=== PATIENT | female | born 1945 | race Caucasian/White ===

== ENCOUNTER → 2017-10-05 14:24 | Outpatient (REF) | payer OTHER, SELFPAY | LOC: LAB 14:24 | PROVIDERS: Family Provider Family Medicine; PCP Family Medicine; Visit Provider Otolaryngology | DX: J34.0 Abscess, furuncle and carbuncle of nose (principal) | CPT/HCPCS: 87070; 87077; 87147; 87186; 87205 ==

== ENCOUNTER 2018-02-03 12:38 | Emergency (ER) | payer MEDICARE, OTHER, SELFPAY ==
--- NOTE | 2018-02-03 12:38 | DI.CT.S_ITS ---
PROCEDURE: CT HEAD/BRAIN WO CON INDICATIONS: stroke TECHNIQUE: Noncontrast 4.5 mm thick angled axial sections acquired from the foramen magnum to the vertex, with coronal and sagittal reformats. For radiation dose reduction, the following was used: automated exposure control, adjustment of mA and/or kV according to patient size. COMPARISON: None. FINDINGS: Image quality: Excellent. CSF spaces: Basal cisterns are patent. No extra-axial fluid collections. The ventricles are symmetric in size and shape. Brain: No intracranial bleeds or masses. There is cerebral volume loss for age, with resultant ventricular and sulcal prominence. There are periventricular and deep white matter chronic small vessel ischemic changes. There is intracranial internal carotid artery atherosclerosis. Skull and face: Calvarium and visualized facial bones appear intact, without suspicious lesions. Sinuses: Visualized sinuses and mastoids are clear. IMPRESSION: No acute intracranial abnormality. Dictated by: Debra Bethea M.D. on 02/03/2018 at 12:52 Approved by: Debra Bethea M.D. on 02/03/2018 at 12:53
--- NOTE | 2018-02-03 12:52 | ED.NEUROSD ---
HPI - Neuro Symptoms/Deficit General Chief Complaint: Neuro Symptoms/Deficit Stated Complaint: Rt Facial Droop Time Seen by Provider: 02/03/18 12:51 Source: patient and EMS Mode of arrival: EMS Limitations: altered mental status History of Present Illness HPI Narrative: 72-year-old female with history of hypertension presents as a code stroke by EMS. She was talking on the phone with a friend, the conversation started at 11:05 a.m. and at 11:25 a.m. the friend states the patient became unintelligible. Prior to that point there was no complaint of feeling abnormal no recent illness. EMS found the patient at home on the ground with obvious significant right-sided weakness and unintelligible speech. She was found with blood glucose of 98 and no complaint of a fall or injury. Code stroke activated. Last Observed Normal: 11:25 Timing confirmed by: family member Location: speech, right face, dysarthria, right arm, right leg, ataxia and altered History of same: No Severity: severe Quality: weak Relieving factors: none Exacerbating factors: none Context: sudden onset On Anticoagulants: No Associated symptoms: denies other symptoms Treatments Prior to Arrival: none Related Data Previous Rx's Medication Instructions Recorded codeine-guaifenesin 5 ml PO Q4HP PRN #100 ml 01/30/17 doxycycline monohydrate [Monodox] 100 mg PO BID #20 cap 01/30/17 prednisone 20 mg PO QDAY #5 tab 01/30/17 Allergies Allergy/AdvReac Type Severity Reaction Status Date / Time amoxicillin [From AUGMENTIN] Allergy Severe HEART Unverified 08/01/17 11:50 PALPATIONS clavulanic acid Allergy Severe HEART Unverified 08/01/17 11:50 [From AUGMENTIN] PALPATIONS lisinopril [LISINOPRIL] AdvReac Severe COUGH Unverified 08/01/17 11:50 Review of Systems Review of Systems All systems reviewed & are unremarkable except as noted in HPI and below Constitutional Denies chills, Denies fever(s), Denies lethargy and Reports weakness Eyes Denies change in vision, Denies eye discharge, Denies irritation and Denies loss of vision ENT Ears, Nose, Mouth, and Throat: Denies change in voice, Denies neck pain and Denies sore throat Cardiovascular Denies chest pain, Denies irregular heart rhythm, Denies lightheadedness, Denies palpitations, Denies dyspnea, Denies dyspnea on exertion and Denies orthopnea Respiratory Denies cough, Denies dyspnea, Denies dyspnea on exertion and Denies wheezing Gastrointestinal Gastrointestinal: Denies abdominal pain, Denies change in bowel habits, Denies diarrhea, Denies nausea and Denies vomiting Genitourinary Denies hematuria, Denies flank pain, Denies urinary incontinence and Denies urinary urgency Musculoskeletal Denies neck pain Integumentary/Breasts Denies pruritus, Denies erythema, Denies rash and Denies wounds Neurologic Reports system reviewed and no additional complaints, except as docu, Reports abnormal speech, Denies confusion, Reports focal weakness, Denies loss of vision, Reports paresthesias and Reports weakness Psychiatric Denies anxiety, Denies confusion, Denies depression, Denies homicidal ideation and Denies suicidal ideation Endocrine Denies palpitations Hematologic/Lymphatic Denies easy bruising Allergic/Immunologic Denies wheezing Exam Narrative Exam Narrative: GENERAL: This is a well-nourished, well-developed patient, in severe distress with obvious large vessel occlusion HEAD: Atraumatic. Normocephalic. No temporal or scalp tenderness. EYES: Pupils equal round and reactive. Extraocular motions intact. No scleral icterus. No injection or drainage. ENT: Nose without bleeding, purulent drainage or septal hematoma. Throat without erythema, tonsillar hypertrophy or exudate. Uvula midline. Airway patent. NECK: Trachea midline. No JVD or lymphadenopathy. Supple, nontender, no meningeal signs. CARDIOVASCULAR: Regular rate and rhythm without murmurs, gallops, or rubs. RESPIRATORY: Clear to auscultation. Breath sounds equal bilaterally. No wheezes, rales, or rhonchi. GASTROINTESTINAL: Abdomen soft, non-tender, nondistended. No hepato-splenomegaly, or palpable masses. No guarding. EXTREMITIES: No clubbing, cyanosis, or edema. No joint tenderness, effusion, or edema noted. BACK: Nontender without deformity or crepitance. No flank tenderness. NEURO: See NIH SKIN: No rash or erythema. Initial Vital Signs Initial Vital Signs: Vital Signs Temperature 97.0 F L 02/03/18 12:53 Pulse Rate 84 02/03/18 12:53 Respiratory Rate 19 02/03/18 12:53 Blood Pressure 186/86 H 02/03/18 12:53 Pulse Oximetry 98 10/14/18 12:53 Scores NIH Stroke Scale Level of Conciousness: Alert, keenly responsive Ask month/age: Answers both questions correctly. Open/close eyes, close hand: Performs both tasks correctly Best gaze horizontal: Normal Visual crespo: No visual loss Facial palsy: Partial paralysis, total or near total paralysis of lower face Left arm drift: No drift for full 10 sec Right arm drift: No movement Left leg drift: No drift for full 10 sec Right leg drift: No movement Limb ataxia: Absent Sensory on face/arms/legs: Normal, no sensory loss Best language: Severe aphasia, not much is understood, fragmented Dysarthria: Mild to mod,some slurring Extinction or inattention: Visual, tactile, auditory, spacial or personal inattention to stimuli Total NIH Stroke scale score: 14 Course Orders Ordered: ED Orders 02/03/18 12:38 CT head/brain wo con Stat 02/03/18 12:39 EKG-12 Lead Stat 02/03/18 13:06 CT angio head and neck Stat Discontinued Medications Sodium Chloride (Normal Saline 0.9%) 1,000 mls @ 150 mls/hr IV CONT LYNDA Last Admin: 02/03/18 14:35 Dose: Nicardipine HCl 25 mg/ Sodium (Chloride) 250 mls @ 50 mls/hr IV TITRATE LYNDA; Protocol Last Admin: 02/03/18 14:34 Dose: Reevaluation(s) Reevaluation #1: Patient back from CTA and demonstrating some improvement of symptoms including some mild return of motor to right upper and lower extremity. She can move fingers and toes DPOA is sister Jessi Cooper, she is aware and en route to [facility]. [phone] Time: 13:42 Consultations Consultation #1: stroke team called, CODE IR activated tPA bolus ordered 8.4mg (1316) tPA drip ordered 75.8mg (1317) pharmacy at bedside patient consented to tPA. Systolic BP just prior to tPA 177 tPA Contraindications for Ischemic Stroke from [email or web address] on 02/03/2018 All calculations should be rechecked by clinician prior to use RESULT SUMMARY: Patient eligible for tPA. INPUTS: Age ?17 ?> 1 = Yes Clinical diagnosis of ischemic stroke causing neurological deficit ?> 1 = Yes Time of symptom onset <4.5 hours ?> 1 = Yes Intracranial hemorrhage on CT ?> 0 = No Clinical presentation suggests subarachnoid hemorrhage ?> 0 = No Neurosurgery, head trauma, or stroke in past 3 months ?> 0 = No Uncontrolled hypertension (>185 mmHg SBP or >110 mmHg DBP) ?> 0 = No History of intracranial hemorrhage ?> 0 = No Known intracranial arteriovenous malformation, neoplasm, or aneurysm ?> 0 = No Active internal bleeding ?> 0 = No Suspected/confirmed endocarditis ?> 0 = No Known bleeding diathesis ?> 0 = No Abnormal blood glucose (<50 mg/dL) ?> 0 = No Only minor or rapidly improving stroke symptoms ?> 0 = No Major surgery or serious non-head trauma in the previous 14 days ?> 0 = No History of gastrointestinal or urinary tract hemorrhage within 21 days ?> 0 = No Seizure at stroke onset ?> 0 = No Recent arterial puncture at a noncompressible site ?> 0 = No Recent lumbar puncture ?> 0 = No Post myocardial infarction pericarditis ?> 0 = No ?> 0 = No Age >80 years ?> 0 = No History of prior stroke and diabetes ?> 0 = No Any active anticoagulant use (even with INR <1.7) ?> 0 = No <calculator id='[id number]'>NIHSS</calculator> >25 ?> 0 = No CT shows multilobar infarction (hypodensity >1/3 cerebral hemisphere) ?> 0 = No tPA (Tissue Plasminogen Activator) Dosing for Stroke Calculator from [employer] on 02/03/2018 All calculations should be rechecked by clinician prior to use RESULT SUMMARY: 8.4 mg Bolus dose, given IV over 1 min 75.8 mg Infusion, given IV over 60 mins 15.8 mg Waste, to be discarded INPUTS: Weight ?> 93.6 kg happy to accept as code IR. will obtain CTA prior to departure Time: 13:04 Consultation #2: [email or web address] en route Time: 13:10 Vital Signs - 8 hr 02/03/18 12:53 02/03/18 13:54 02/03/18 14:37 Temperature 97.0 F L Pulse Rate 84 87 89 Respiratory Rate 19 20 20 Blood Pressure 186/86 H 162/71 H Blood Pressure [Right Arm] 165/77 H Pulse Oximetry 98 95 98 MDM - Neuro Symptoms/Deficit Medical Records Attestation: I reviewed the patient's medical records. Lab Data Attestation: I reviewed the patient's lab results. Result diagrams: 02/03/18 Unknown 02/03/18 Unknown Lab Results 02/03/18 02/03/18 02/03/18 Range/Units Unknown Unknown Unknown WBC 6.0 (4.5-11.0) X10^3/uL RBC 4.64 (4.0-5.2) X10^6/uL Hgb 13.4 (12.0-16.0) g/dL Hct 40.2 (36-46) % MCV 86.5 (80-100) fL MCH 28.9 (26-34) PG MCHC 33.5 (30-36) % RDW 14.9 H (11.6-14.8) % Plt Count 227 (150-400) X10^3/uL Neut % (Auto) 64.4 (50-75) % Lymph % (Auto) 26.1 (25-40) % [place] % (Auto) 7.2 (3-14) % Eos % (Auto) 1.4 L (2-4) % Baso % (Auto) 0.9 (0-2) % Neut # (Auto) 3900 (3589-1846) /uL PT 10.7 (10.1-12.7) SECONDS INR 1.0 (0.9-1.3) APTT 28 (26.4-36.2) SECONDS Sodium 142 (137-145) mmol/L Potassium 3.9 (3.4-5.1) mmol/L Chloride 103 (98-107) mmol/L Carbon Dioxide 26 (22-32) mmol/L BUN 21 H (7-17) mg/dL Creatinine 0.80 (0.52-1.04) mg/dL Estimated GFR > 60.0 (>60) mL/min BUN/Creatinine Ratio 26.3 H (6-22) Glucose 104 (80-110) mg/dL Calcium 9.6 (8.4-10.2) mg/dL Imaging Data CT scan - head: Radiologist's impression: [address] [address] [address] Scan Report Signed Patient: Marielos Walker EMR#: [id number] : 5Acct:[id number] Age/Sex: 72 / FDate of Service: 02/03/18 Loc: ED Accession Number: [id number] Procedure: CT head/brain wo con Ordering Provider: Wes Cagle D.O. PROCEDURE: CT HEAD/BRAIN WO CON INDICATIONS: stroke TECHNIQUE: Noncontrast 4.5 mm thick angled axial sections acquired from the foramen magnum to the vertex, with coronal and sagittal reformats. For radiation dose reduction, the following was used: automated exposure control, adjustment of mA and/or kV according to patient size. COMPARISON: None. FINDINGS: Image quality: Excellent. CSF spaces: Basal cisterns are patent. No extra-axial fluid collections. The ventricles are symmetric in size and shape. Brain: No intracranial bleeds or masses. There is cerebral volume loss for age, with resultant ventricular and sulcal prominence. There are periventricular and deep white matter chronic small vessel ischemic changes. There is intracranial internal carotid artery atherosclerosis. Skull and face: Calvarium and visualized facial bones appear intact, without suspicious lesions. Sinuses: Visualized sinuses and mastoids are clear. IMPRESSION: No acute intracranial abnormality. Dictated by: Debra Bethea M.D. on 02/03/2018 at 12:52 Approved by: Debra Bethea M.D. on 02/03/2018 at 12:53 CTA Head/Neck: Radiologist's impression: [place] [address] CT Scan Report Signed Patient: Marielos Walker EMR#: [id number] : 5Acct:[id number] Age/Sex: 72 / FDate of Service: 02/03/18 Loc: ED Accession Number: [id number] Procedure: CT angio head and neck Ordering Provider: Wes Cagle D.O. PROCEDURE: CT ANGIO HEAD AND NECK INDICATIONS: code IR TECHNIQUE: Pre-contrast 4.5 mm thick sections acquired from the foramen magnum to the vertex. After the administration of intravenous contrast, 1 mm thick sections acquired from the aortic arch through the [place] of [place]. Post-contrast 4.5 mm thick sections then re-acquired from the foramen magnum to the vertex. 3-dimensional khnwspf-smmstafvr-tcqgxknlar (MIP) and/or volume rendering reformats were acquired of the central intracranial vasculature and neck separately. COMPARISON: [facility], CT, CT HEAD/BRAIN WO CON, 02/03/2018, 12:34. FINDINGS: Image quality: Excellent. BRAIN: CSF spaces: Ventricles are normal in size and shape. Basal cisterns are patent. No extra-axial fluid collections. Brain: No midline shift. No intracranial bleeds. There is a dural-based calcified mass at the lateral aspect of the left temporal lobe anteriorly measuring 18 mm. Etienne-white matter interface appears intact. Skull and face: Calvarium and facial bones appear intact, without suspicious lesions. Orbits appear normal. Sinuses: Sinuses and mastoids are clear. HEAD CT ANGIOGRAPHY: Anterior circulation: Right internal carotid artery is patent as visualized. The cavernous segment is not well seen secondary to vessel tortuosity and venous opacification. Left internal carotid artery is occluded. Reconstituted flow is seen within the left middle cerebral artery. There is moderately reduced flow within the left middle cervical artery. The flow within the paired anterior cerebral arteries is normal and symmetric. The flow within the middle cerebral arteries is normal and symmetric. The anterior communicating artery is seen. No aneurysms are seen. Posterior circulation: Visualized portions of the vertebral arteries demonstrate normal caliber, and join to form a normal appearing basilar artery. Flow within the posterior cerebral arteries is normal and symmetric. No aneurysms are seen. NECK CT ANGIOGRAPHY: Carotid system: The great vessels demonstrate a conventional anatomy as they arise from the aortic arch. The origins of the common carotid arteries appear patent. The common carotid arteries demonstrate normal caliber and courses. There is moderate, roughly 50% stenosis of the proximal right internal carotid artery, which overlies appears patent. Left internal carotid artery is occluded. Posterior circulation: The origins of the vertebral arteries both appear widely patent. The more superior extracranial portions of both vertebral arteries also demonstrate normal courses and calibers. They join to form a normal appearing basilar artery. Soft tissues: Visualized neck soft tissues demonstrate no suspicious abnormalities. Bones: No suspicious bony lesions. Visualized cervical spine appears normally aligned. IMPRESSION: 1. Completely occluded left internal carotid artery. 2. 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 3. Left middle cranial fossa meningioma. Any quantitative measurements of stenosis were performed using NASCET criteria. Dictated by: Debra Bethea M.D. on 02/03/2018 at 14:01 Approved by: Debra Bethea M.D. on 02/03/2018 at 14:09 ECG Data Attestation: I personally reviewed and interpreted this ECG as follows: Prior ECG tracings: not available for review Interpretation: Normal sinus rhythm with rate of 81. No ectopy or signs of ischemia Discharge Plan Departure [facility] Clinical Impression: Cerebrovascular accident Discharge Date/Time: 02/03/18 14:02 Interventions: ED Discharge Assessment Last Done: 02/03/18 14:37 Prescriptions: No Action prednisone 20 MG tablet 20 mg PO QDAY Qty: 5 RF: 0 doxycycline monohydrate [Monodox] 100 MG capsule 100 mg PO BID Qty: 20 RF: 0 codeine-guaifenesin 100 MG/10 MG liquid 5 ml PO Q4HP PRNQty: 100 RF: 0
[2018-02-03 12:53] VITALS: BP 186/86; PULSE 84; RESP 19; TEMP 36.1; O2SAT 98
[2018-02-03 12:54] LABS: Add Manual Diff / Slide Review NO; Basophils Percent Auto 0.9 % (0-2); Eosinophils Percent Auto 1.4 % (2-4); Hematocrit 40.2 % (36-46); Hemoglobin 13.4 g/dL (12.0-16.0); Lymphocytes Percent Auto 26.1 % (25-40); Mean Corpuscular HGB Conc 33.5 % (30-36); Mean Corpuscular Hemoglobin 28.9 PG (26-34); Mean Corpuscular Volume 86.5 fL (80-100); Monocytes Percent Auto 7.2 % (3-14); Neutrophils Absolute Auto 3900 /uL (3000-5900); Neutrophils Percent Auto 64.4 % (50-75); Platelet Count 227 X10^3/uL (150-400); Red Blood Cell Count 4.64 X10^6/uL (4.0-5.2); Red Cell Distribution Width 14.9 % (11.6-14.8)
[2018-02-03 13:02] LABS: Prothrombin Time 10.7 SECONDS (10.1-12.7)
[2018-02-03 13:04] LABS: PTT Partial Thromboplastin Tim 28 SECONDS (26.4-36.2)
[2018-02-03 13:05] LABS: BUN Creatinine Ratio 26.3 (6-22); Blood Urea Nitrogen 21 mg/dL (7-17); Calcium 9.6 mg/dL (8.4-10.2); Carbon Dioxide 26 mmol/L (22-32); Chloride 103 mmol/L (98-107); Estimated Glomerular Filt Rate > 60.0 mL/min (>60); Glucose 104 mg/dL (80-110); HEMOLYSIS 22 (0-50); Potassium 3.9 mmol/L (3.4-5.1); Sodium 142 mmol/L (137-145)
--- NOTE | 2018-02-03 13:06 | ED_ITS ---
HPI - Neuro Symptoms/Deficit General Chief Complaint: Neuro Symptoms/Deficit Stated Complaint: Rt Facial Droop Time Seen by Provider: 02/03/18 12:51 Source: patient and EMS Mode of arrival: EMS Limitations: altered mental status History of Present Illness HPI Narrative: 72-year-old female with history of hypertension presents as a code stroke by EMS. She was talking on the phone with a friend, the conversation started at 11:05 a.m. and at 11:25 a.m. the friend states the patient became unintelligible. Prior to that point there was no complaint of feeling abnormal no recent illness. EMS found the patient at home on the ground with obvious significant right-sided weakness and unintelligible speech. She was found with blood glucose of 98 and no complaint of a fall or injury. Code stroke activated. Last Observed Normal: 11:25 Timing confirmed by: family member Location: speech, right face, dysarthria, right arm, right leg, ataxia and altered History of same: No Severity: severe Quality: weak Relieving factors: none Exacerbating factors: none Context: sudden onset On Anticoagulants: No Associated symptoms: denies other symptoms Treatments Prior to Arrival: none Related Data Previous Rx's Medication Instructions Recorded codeine-guaifenesin 5 ml PO Q4HP PRN #100 ml 01/30/17 doxycycline monohydrate [Monodox] 100 mg PO BID #20 cap 01/30/17 prednisone 20 mg PO QDAY #5 tab 01/30/17 Allergies Allergy/AdvReac Type Severity Reaction Status Date / Time amoxicillin [From AUGMENTIN] Allergy Severe HEART Unverified 08/01/17 11:50 PALPATIONS clavulanic acid Allergy Severe HEART Unverified 08/01/17 11:50 [From AUGMENTIN] PALPATIONS lisinopril [LISINOPRIL] AdvReac Severe COUGH Unverified 08/01/17 11:50 Review of Systems Review of Systems All systems reviewed & are unremarkable except as noted in HPI and below Constitutional Denies chills, Denies fever(s), Denies lethargy and Reports weakness Eyes Denies change in vision, Denies eye discharge, Denies irritation and Denies loss of vision ENT Ears, Nose, Mouth, and Throat: Denies change in voice, Denies neck pain and Denies sore throat Cardiovascular Denies chest pain, Denies irregular heart rhythm, Denies lightheadedness, Denies palpitations, Denies dyspnea, Denies dyspnea on exertion and Denies orthopnea Respiratory Denies cough, Denies dyspnea, Denies dyspnea on exertion and Denies wheezing Gastrointestinal Gastrointestinal: Denies abdominal pain, Denies change in bowel habits, Denies diarrhea, Denies nausea and Denies vomiting Genitourinary Denies hematuria, Denies flank pain, Denies urinary incontinence and Denies urinary urgency Musculoskeletal Denies neck pain Integumentary/Breasts Denies pruritus, Denies erythema, Denies rash and Denies wounds Neurologic Reports system reviewed and no additional complaints, except as docu, Reports abnormal speech, Denies confusion, Reports focal weakness, Denies loss of vision , Reports paresthesias and Reports weakness Psychiatric Denies anxiety, Denies confusion, Denies depression, Denies homicidal ideation and Denies suicidal ideation Endocrine Denies palpitations Hematologic/Lymphatic Denies easy bruising Allergic/Immunologic Denies wheezing Exam Narrative Exam Narrative: GENERAL: This is a well-nourished, well-developed patient, in severe distress with obvious large vessel occlusion HEAD: Atraumatic. Normocephalic. No temporal or scalp tenderness. EYES: Pupils equal round and reactive. Extraocular motions intact. No scleral icterus. No injection or drainage. ENT: Nose without bleeding, purulent drainage or septal hematoma. Throat without erythema, tonsillar hypertrophy or exudate. Uvula midline. Airway patent. NECK: Trachea midline. No JVD or lymphadenopathy. Supple, nontender, no meningeal signs. CARDIOVASCULAR: Regular rate and rhythm without murmurs, gallops, or rubs. RESPIRATORY: Clear to auscultation. Breath sounds equal bilaterally. No wheezes , rales, or rhonchi. GASTROINTESTINAL: Abdomen soft, non-tender, nondistended. No hepato-splenomegaly , or palpable masses. No guarding. EXTREMITIES: No clubbing, cyanosis, or edema. No joint tenderness, effusion, or edema noted. BACK: Nontender without deformity or crepitance. No flank tenderness. NEURO: See NIH SKIN: No rash or erythema. Initial Vital Signs Initial Vital Signs: Vital Signs Temperature 97.0 F L 02/03/18 12:53 Pulse Rate 84 02/03/18 12:53 Respiratory Rate 19 02/03/18 12:53 Blood Pressure 186/86 H 02/03/18 12:53 Pulse Oximetry 98 10/14/18 12:53 Scores NIH Stroke Scale Level of Conciousness: Alert, keenly responsive Ask month/age: Answers both questions correctly. Open/close eyes, close hand: Performs both tasks correctly Best gaze horizontal: Normal Visual crespo: No visual loss Facial palsy: Partial paralysis, total or near total paralysis of lower face Left arm drift: No drift for full 10 sec Right arm drift: No movement Left leg drift: No drift for full 10 sec Right leg drift: No movement Limb ataxia: Absent Sensory on face/arms/legs: Normal, no sensory loss Best language: Severe aphasia, not much is understood, fragmented Dysarthria: Mild to mod,some slurring Extinction or inattention: Visual, tactile, auditory, spacial or personal inattention to stimuli Total NIH Stroke scale score: 14 Course Orders Ordered: ED Orders 02/03/18 12:38 CT head/brain wo con Stat 02/03/18 12:39 EKG-12 Lead Stat 02/03/18 13:06 CT angio head and neck Stat Discontinued Medications Sodium Chloride (Normal Saline 0.9%) 1,000 mls @ 150 mls/hr IV CONT LYNDA Last Admin: 02/03/18 14:35 Dose: Nicardipine HCl 25 mg/ Sodium (Chloride) 250 mls @ 50 mls/hr IV TITRATE LYNDA; Protocol Last Admin: 02/03/18 14:34 Dose: Reevaluation(s) Reevaluation #1: Patient back from CTA and demonstrating some improvement of symptoms including some mild return of motor to right upper and lower extremity. She can move fingers and toes DPOA is sister Jessi Cooper, she is aware and en route to [facility]. [phone] Time: 13:42 Consultations Consultation #1: stroke team called, CODE IR activated tPA bolus ordered 8.4mg (1316) tPA drip ordered 75.8mg (1317) pharmacy at bedside patient consented to tPA. Systolic BP just prior to tPA 177 tPA Contraindications for Ischemic Stroke from [employer] on 02/03/2018 All calculations should be rechecked by clinician prior to use RESULT SUMMARY: Patient eligible for tPA. INPUTS: Age ?17 ?> 1 = Yes Clinical diagnosis of ischemic stroke causing neurological deficit ?> 1 = Yes Time of symptom onset <4.5 hours ?> 1 = Yes Intracranial hemorrhage on CT ?> 0 = No Clinical presentation suggests subarachnoid hemorrhage ?> 0 = No Neurosurgery, head trauma, or stroke in past 3 months ?> 0 = No Uncontrolled hypertension (>185 mmHg SBP or >110 mmHg DBP) ?> 0 = No History of intracranial hemorrhage ?> 0 = No Known intracranial arteriovenous malformation, neoplasm, or aneurysm ?> 0 = No Active internal bleeding ?> 0 = No Suspected/confirmed endocarditis ?> 0 = No Known bleeding diathesis ?> 0 = No Abnormal blood glucose (<50 mg/dL) ?> 0 = No Only minor or rapidly improving stroke symptoms ?> 0 = No Major surgery or serious non-head trauma in the previous 14 days ?> 0 = No History of gastrointestinal or urinary tract hemorrhage within 21 days ?> 0 = No Seizure at stroke onset ?> 0 = No Recent arterial puncture at a noncompressible site ?> 0 = No Recent lumbar puncture ?> 0 = No Post myocardial infarction pericarditis ?> 0 = No ?> 0 = No Age >80 years ?> 0 = No History of prior stroke and diabetes ?> 0 = No Any active anticoagulant use (even with INR <1.7) ?> 0 = No <calculator id='[id number]'>NIHSS</calculator> >25 ?> 0 = No CT shows multilobar infarction (hypodensity >1/3 cerebral hemisphere) ?> 0 = No tPA (Tissue Plasminogen Activator) Dosing for Stroke Calculator from [employer] on 02/03/2018 All calculations should be rechecked by clinician prior to use RESULT SUMMARY: 8.4 mg Bolus dose, given IV over 1 min 75.8 mg Infusion, given IV over 60 mins 15.8 mg Waste, to be discarded INPUTS: Weight ?> 93.6 kg happy to accept as code IR. will obtain CTA prior to departure Time: 13:04 Consultation #2: [email or web address] en route Time: 13:10 Vital Signs - 8 hr 02/03/18 12:53 02/03/18 13:54 02/03/18 14:37 Temperature 97.0 F L Pulse Rate 84 87 89 Respiratory Rate 19 20 20 Blood Pressure 186/86 H 162/71 H Blood Pressure [Right Arm] 165/77 H Pulse Oximetry 98 95 98 MDM - Neuro Symptoms/Deficit Medical Records Attestation: I reviewed the patient's medical records. Lab Data Attestation: I reviewed the patient's lab results. Result diagrams: 02/03/18 Unknown 02/03/18 Unknown Lab Results 02/03/18 02/03/18 02/03/18 Range/Units Unknown Unknown Unknown WBC 6.0 (4.5-11.0) X10^3/uL RBC 4.64 (4.0-5.2) X10^6/uL Hgb 13.4 (12.0-16.0) g/dL Hct 40.2 (36-46) % MCV 86.5 (80-100) fL MCH 28.9 (26-34) PG MCHC 33.5 (30-36) % RDW 14.9 H (11.6-14.8) % Plt Count 227 (150-400) X10^3/uL Neut % (Auto) 64.4 (50-75) % Lymph % (Auto) 26.1 (25-40) % Howard % (Auto) 7.2 (3-14) % Eos % (Auto) 1.4 L (2-4) % Baso % (Auto) 0.9 (0-2) % Neut # (Auto) 3900 (2767-1735) /uL PT 10.7 (10.1-12.7) SECONDS INR 1.0 (0.9-1.3) APTT 28 (26.4-36.2) SECONDS Sodium 142 (137-145) mmol/L Potassium 3.9 (3.4-5.1) mmol/L Chloride 103 (98-107) mmol/L Carbon Dioxide 26 (22-32) mmol/L BUN 21 H (7-17) mg/dL Creatinine 0.80 (0.52-1.04) mg/dL Estimated GFR > 60.0 (>60) mL/min BUN/Creatinine Ratio 26.3 H (6-22) Glucose 104 (80-110) mg/dL Calcium 9.6 (8.4-10.2) mg/dL Imaging Data CT scan - head: Radiologist's impression: [address] [address] [address] Scan Report Signed Patient: Marielos Walker EMR#: [id number] : 5Acct:[id number] Age/Sex: 72 / FDate of Service: 02/03/18 Loc: ED Accession Number: [id number] Procedure: CT head/brain wo con Ordering Provider: Wes Cagle D.O. PROCEDURE: CT HEAD/BRAIN WO CON INDICATIONS: stroke TECHNIQUE: Noncontrast 4.5 mm thick angled axial sections acquired from the foramen magnum to the vertex, with coronal and sagittal reformats. For radiation dose reduction, the following was used: automated exposure control, adjustment of mA and/or kV according to patient size. COMPARISON: None. FINDINGS: Image quality: Excellent. CSF spaces: Basal cisterns are patent. No extra-axial fluid collections. The ventricles are symmetric in size and shape. Brain: No intracranial bleeds or masses. There is cerebral volume loss for age , with resultant ventricular and sulcal prominence. There are periventricular and deep white matter chronic small vessel ischemic changes. There is intracranial internal carotid artery atherosclerosis. Skull and face: Calvarium and visualized facial bones appear intact, without suspicious lesions. Sinuses: Visualized sinuses and mastoids are clear. IMPRESSION: No acute intracranial abnormality. Dictated by: Debra Bethea M.D. on 02/03/2018 at 12:52 Approved by: Debra Bethea M.D. on 02/03/2018 at 12:53 CTA Head/Neck: Radiologist's impression: [place] [address] CT Scan Report Signed Patient: Marielos Walker EMR#: [id number] : 5Acct:[id number] Age/Sex: 72 / FDate of Service: 02/03/18 Loc: ED Accession Number: [id number] Procedure: CT angio head and neck Ordering Provider: Wes Cagle D.O. PROCEDURE: CT ANGIO HEAD AND NECK INDICATIONS: code IR TECHNIQUE: Pre-contrast 4.5 mm thick sections acquired from the foramen magnum to the vertex. After the administration of intravenous contrast, 1 mm thick sections acquired from the aortic arch through the [place] of [place]. Post-contrast 4.5 mm thick sections then re- acquired from the foramen magnum to the vertex. 3-dimensional maximum-intensity- projection (MIP) and/or volume rendering reformats were acquired of the central intracranial vasculature and neck separately. COMPARISON: [facility], CT, CT HEAD/BRAIN WO CON, 02/03/2018, 12:34. FINDINGS: Image quality: Excellent. BRAIN: CSF spaces: Ventricles are normal in size and shape. Basal cisterns are patent. No extra-axial fluid collections. Brain: No midline shift. No intracranial bleeds. There is a dural-based calcified mass at the lateral aspect of the left temporal lobe anteriorly measuring 18 mm. Etienne -white matter interface appears intact. Skull and face: Calvarium and facial bones appear intact, without suspicious lesions. Orbits appear normal. Sinuses: Sinuses and mastoids are clear. HEAD CT ANGIOGRAPHY: Anterior circulation: Right internal carotid artery is patent as visualized. The cavernous segment is not well seen secondary to vessel tortuosity and venous opacification. Left internal carotid artery is occluded. Reconstituted flow is seen within the left middle cerebral artery. There is moderately reduced flow within the left middle cervical artery. The flow within the paired anterior cerebral arteries is normal and symmetric. The flow within the middle cerebral arteries is normal and symmetric. The anterior communicating artery is seen. No aneurysms are seen. Posterior circulation: Visualized portions of the vertebral arteries demonstrate normal caliber, and join to form a normal appearing basilar artery. Flow within the posterior cerebral arteries is normal and symmetric. No aneurysms are seen. NECK CT ANGIOGRAPHY: Carotid system: The great vessels demonstrate a conventional anatomy as they arise from the aortic arch. The origins of the common carotid arteries appear patent. The common carotid arteries demonstrate normal caliber and courses. There is moderate, roughly 50% stenosis of the proximal right internal carotid artery, which overlies appears patent. Left internal carotid artery is occluded. Posterior circulation: The origins of the vertebral arteries both appear widely patent. The more superior extracranial portions of both vertebral arteries also demonstrate normal courses and calibers. They join to form a normal appearing basilar artery. Soft tissues: Visualized neck soft tissues demonstrate no suspicious abnormalities. Bones: No suspicious bony lesions. Visualized cervical spine appears normally aligned. IMPRESSION: 1. Completely occluded left internal carotid artery. 2. 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 3. Left middle cranial fossa meningioma. Any quantitative measurements of stenosis were performed using NASCET criteria. Dictated by: Debra Bethea M.D. on 02/03/2018 at 14:01 Approved by: Debra Bethea M.D. on 02/03/2018 at 14:09 ECG Data Attestation: I personally reviewed and interpreted this ECG as follows: Prior ECG tracings: not available for review Interpretation: Normal sinus rhythm with rate of 81. No ectopy or signs of ischemia Discharge Plan Departure Patient Disposition: [facility] Clinical Impression: Cerebrovascular accident Discharge Date/Time: 02/03/18 14:02 Interventions: ED Discharge Assessment Last Done: 02/03/18 14:37 Prescriptions: No Action prednisone 20 MG tablet 20 mg PO QDAY Qty: 5 RF: 0 doxycycline monohydrate [Monodox] 100 MG capsule 100 mg PO BID Qty: 20 RF: 0 codeine-guaifenesin 100 MG/10 MG liquid 5 ml PO Q4HP PRNQty: 100 RF: 0
[2018-02-03] MEDS: ALTEPLASE 100 MG VIAL 84.2 MG IV (13:16)
[2018-02-03 13:54] VITALS: BP 165/77; PULSE 87; RESP 20; O2SAT 95
[2018-02-03 14:37] VITALS: BP 162/71; PULSE 89; RESP 20; O2SAT 98
== END 2018-02-03 14:02 | disposition short-term general hospital (02) ==
LOC: ED 14:14
PROVIDERS: Emergency Provider Emergency Medicine; Family Provider Family Medicine; PCP Family Medicine
DX: I63.9 Cerebral infarction, unspecified (principal)
CPT/HCPCS: 70450; 70496; 70498; 80048; 85025; 85610; 85730; 93005; 93010; 99283; 99291; 99292; J2997; Q9967

== ENCOUNTER → 2018-07-11 13:23 | Outpatient (CLI) | payer MEDICARE, OTHER, SELFPAY ==
--- NOTE | 2018-07-11 | DI.CT.S_ITS ---
PROCEDURE: CT CHEST W CON INDICATIONS: HISTORY OF MULTIPLE PULMONARY NODULES TECHNIQUE: After the administration of intravenous contrast, 5 mm thick sections acquired from the pulmonary apices to the posterior costophrenic angles. 7 mm thick coronal and sagittal MIP reformats were acquired. For radiation dose reduction, the following was used: automated exposure control, adjustment of mA and/or kV according to patient size. COMPARISON: [facility], CT, CHEST/ABD/PEL WITH CONTRAST, 12/26/2016, 10:09. [facility], CT, THORAX WITH CONTRAST, 03/29/2017, 11:05. [facility] , CT, ABD/PELVIS W/CON (PNL), 10/29/2007, 13:49. [facility], CT, CT CHEST WITHOUT CONTRAST, 09/28/2017, 8:16. FINDINGS: Image quality: Excellent. Lungs and pleura: Probable mild scarring is present at the left lung base. This appears unchanged when compared with the study dated 10/29/07. A 3 mm pulmonary nodule is present within the medial aspect of the, unchanged when compared with the study dated 12/26/16. No new discrete pulmonary nodules. No pleural effusions or pneumothorax. Central and peripheral airways are patent and normal in caliber. Mediastinum: Heart size is normal. No pericardial effusion. No mediastinal or hilar adenopathy by size criteria. Thoracic aorta and central pulmonary arteries are normal in size. Scattered atheromatous calcifications are present within the aortic arch. 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 Scattered atheromatous calcifications are present within the aortic arch. Esophagus is normal in caliber. No hiatal hernia. Bones and chest wall: No suspicious bony lesions. No vertebral body compression fractures. No axillary or supraclavicular adenopathy by size criteria. Thyroid gland is unremarkable area in Abdomen: Visualized upper abdominal solid organs appear normal. Upper abdominal bowel loops are normal in caliber. IMPRESSION: 1. 3 mm pulmonary nodule unchanged from 12/26/16. Please see followup guidelines below. No further followup recommended. 2. Probable left basilar scar. Fleischner Society criteria for SOLID lung nodule followup. Nodule size (mm)Low-risk patientHigh-risk patient?4No follow-up neededFollow-up at 12 mo; if no change, no further follow-up>[id number] CT at 12 mo; if no change, no further follow-up needed.Initial follow-up CT at 6-12 mo, then 18-24 mo if no change. >6-8Initial follow-up CT at 6-12 mo, then 18-24 mo if no change. Initial follow-up CT at 3-6 mo, then 9-12 mo and 24 mo if no change. >8Follow-up CT at 3, 9, 24 mo. Or PET and/or biopsy.Same as for low-risk pts. Fleischner Society criteria for SUB-SOLID lung nodule followup. Solitary pure ground-glass nodules5 mm or lessNo followup needed. >5 mm3 mo follow-up CT to confirm persistence. Then annual CT for 3 years. Part-solid nodules3 mo follow-up CT to confirm persistence. If persistent with solid component <5 mm, annual CT for at least 3 years. If solid component is 5 mm or more, biopsy or surgical resection. Consider PET-CT for lesions > 10 mm. Multiple sub-solid nodulesPure ground glass nodules [address] at 2 and 4 years. Pure ground glass nodules >5 mm without dominant lesion. [address] to confirm persistence, then annual followup CT for at least 3 years. Dominant nodule(s) with part-solid or solid component. [address] to confirm persistence. If persistent, consider biopsy or surgical resection, hope if lesions have >5 mm solid component. Dictated by: Hannah Palomares M.D. on 07/11/2018 at 15:35 Approved by: Hannah Palomares M.D. on 07/11/2018 at 15:48
[2018-07-11 14:33] LABS: Blood Urea Nitrogen 24 mg/dL (7-17); Calcium 9.3 mg/dL (8.4-10.2); Carbon Dioxide 30 mmol/L (22-32); Chloride 102 mmol/L (98-107); Estimated Glomerular Filt Rate > 60.0 mL/min (>60); Glucose 94 mg/dL (80-110); HEMOLYSIS < 15 (0-50); Potassium 3.9 mmol/L (3.4-5.1); Sodium 139 mmol/L (137-145)
== END ==
LOC: CT 13:26 → LAB 14:01
PROVIDERS: PCP Family Medicine; Visit Provider Obstetrics & Gynecology
DX: Z85.42 Personal history of malignant neoplasm of other parts of uterus (principal)
CPT/HCPCS: 36415; 71260; 80048

== ENCOUNTER 2018-09-04 13:31 | Day surgery (SDC) | payer MEDICARE, OTHER, SELFPAY ==
--- NOTE | 2018-09-04 | PATH_ITS ---
[facility] Accession Number: [id number] . 01 Material submitted: . PART A: gastrointestinal site - SMALL BOWEL, GASTRIC BIOPSIES PART B: colon - ASCENDING COLON POLYP . 02 Diagnosis: A. Small Bowel, Gastric Biopsies: Portions of small bowel mucosa with no significant histomorphologic abnormality. Portion of gastric antral and body-type mucosa with focal mucosal erosion and no significant histomorphologic abnormality. Negative for H. pylori organisms by immunohistochemistry studies. Negative for intestinal metaplasia. Negative for dysplasia or malignancy. . B. Ascending Colon, Polyp: Tubular adenoma; negative for high-grade dysplasia. [facility]/09/06/2018 . 02 Electronically signed: . Ruby Mcclain MD, Pathologist NPI- [id number] . 01 Gross description: . Part A: SMALL BOWEL, GASTRIC BIOPSIES: Received in formalin are 3 fragment(s) of altamirano, soft tissue measuring 0.1 x 0.1 x 0.1 cm to 0.3 x 0.2 x 0.2 cm which is entirely submitted and submitted entirely in 1 cassette(s) Part B: ASCENDING COLON POLYP: Received in formalin is 1 fragment(s) of altamirano, soft tissue measuring 0.6 x 0.3 x 0.3 cm which is entirely submitted and submitted entirely in 1 cassette(s) /[facility] /[facility] . 02 Microscopic: . An immunohistochemical stain was performed to evaluate for Helicobacter organisms and is negative. The control stain showed appropriate reactivity. . * This test was developed and its performance characteristics determined by [employer]. It has not been cleared or approved by the U.S. Food and Drug Administration. The FDA has determined that such clearance or approval is not necessary. This test is used for clinical purposes. It should not be regarded as investigational or for research. . 02 Pathologist provided ICD-10: K63.5, K29.70 . 02 CPT . 540517, 368842, C98019 Performed at: [facility] [address] [id number] MD Jin Small MD Phone: [phone] Performed at: [id number] [place], [place] [id number] MD Lara Huffman MD Phone: [phone]
--- NOTE | 2018-09-04 08:57 | PM.HP.1 ---
History of Present Illness Date Patient Seen: 09/04/18 Time Patient Seen: 08:30 Chief complaint: [id number] Narrative: History of esophagitis with recurrent dysphagia. Last dilation 2 years ago Patient History Medical History (Updated 09/03/18 @ 17:08 by Roxana Osorio RN) Blurred vision (Acute) Bruises easily (Acute) Difficulty walking (Acute) Dysphagia (Acute) Dysphagia as late effect of cerebrovascular disease (Acute) Fatigue (Acute) Joint pain (Acute) Memory disturbance (Acute) Skin mole (Acute) Meds Home Medications Medication Instructions Recorded Confirmed Type codeine-guaifenesin 5 ml PO Q4HP PRN #100 ml 01/30/17 Rx doxycycline monohydrate [Monodox] 100 mg PO BID #20 cap 01/30/17 Rx prednisone 20 mg PO QDAY #5 tab 01/30/17 Rx Plavix 09/03/18 History aspirin 81 mg PO DAILY 09/03/18 09/03/18 History atorvastatin [Lipitor] 10 mg PO DAILY 09/03/18 09/03/18 History cholecalciferol (vitamin D3) 50,000 unit PO DAILY 09/03/18 09/03/18 History losartan 25 mg PO DAILY 09/03/18 09/03/18 History Allergies Allergy/AdvReac Type Severity Reaction Status Date / Time acetaminophen Allergy Severe Unlisted Verified 09/03/18 17:07 amoxicillin [From AUGMENTIN] Allergy Severe HEART Unverified 08/01/17 11:50 PALPATIONS clavulanic acid Allergy Severe HEART Unverified 08/01/17 11:50 [From AUGMENTIN] PALPATIONS erythromycin base Allergy Severe Unlisted Verified 09/03/18 17:07 moxifloxacin Allergy Severe Unlisted Verified 09/03/18 17:07 lisinopril [LISINOPRIL] AdvReac Severe COUGH Unverified 08/01/17 11:50 Exam Narrative Exam Narrative: Oropharynx free of lesions Chest clear to auscultation percussion Cardiac exam reveals no S3 or murmur Assessment & Plan Assessment & Plan narrative: Assessment recurrent dysphagia Plan repeat EGD with dilation. Risks, benefits, alternatives have been explained
--- NOTE | 2018-09-04 08:58 | PM.OP.ENDO ---
Operative Date/Time/Diagnoses Date of procedure: 09/04/18 Time of procedure: 08:59 Pre-op diagnosis: See indications and findings Procedure & Clinicians Study performed: EGD Same procedure as scheduled: Yes Indications: History of esophagitis with mild esophageal stricture now with recurrent dysphagia after dilation Surgeon: Salma Logan Procedure Notes Procedure in detail: After informed consent was obtained the patient was placed in left lateral decubitus position. The video upper scope was placed into the oropharynx and with the patient's help swallowed into the esophagus. The esophagus, stomach, duodenum were all carefully examined. On withdrawal, retroflexed view of the GE junction was performed. The scope was removed. The patient tolerated the procedure well. Blood loss none Complications none Medications Versed 5 mg fentanyl 100 by g IV titration Total sedation time 20 minutes Findings 1. Grade D esophagitis with near circumferential esophagitis on a mildly narrowed segment at the GE junction. This was biopsied x2. At the end of the procedure a Savary dilation was performed with a 51 Albanian dilator. There was minimal resistance. 2. Small hiatal hernia/paraesophageal hernia 3 cm in size. 3. Normal stomach 4. Normal duodenum I will have the patient come back to see me for follow-up in a month to see how she is doing. She is already on pantoprazole and ranitidine. She really needs better coverage.
--- NOTE | 2018-09-04 09:02 | P.OP.ENDO_ITS ---
Operative Date/Time/Diagnoses Date of procedure: 09/04/18 Time of procedure: 08:59 Pre-op diagnosis: See indications and findings Procedure & Clinicians Study performed: EGD Same procedure as scheduled: Yes Indications: History of esophagitis with mild esophageal stricture now with recurrent dysphagia after dilation Surgeon: Salma Logan Procedure Notes Procedure in detail: After informed consent was obtained the patient was placed in left lateral decubitus position. The video upper scope was placed into the oropharynx and with the patient's help swallowed into the esophagus. The esophagus, stomach, duodenum were all carefully examined. On withdrawal, retr oflexed view of the GE junction was performed. The scope was removed. The patient tolerated the procedure well. Blood loss none Complications none Medications Versed 5 mg fentanyl 100 by g IV titration Total sedation time 20 minutes Findings 1. Grade D esophagitis with near circumferential esophagitis on a mildly narrowed segment at the GE junction. This was biopsied x2. At the end of the p rocedure a Savary dilation was performed with a 51 Iraqi dilator. There was minimal resistance. 2. Small hiatal hernia/paraesophageal hernia 3 cm in size. 3. Normal stomach 4. Normal duodenum I will have the patient come back to see me for follow-up in a month to see how she is doing. She is already on pantoprazole and ranitidine. She really needs better coverage.
[2018-09-04 13:43] VITALS: BP 142/83; PULSE 89; RESP 16; TEMP 36.5; O2SAT 97; BMI 32.4
[2018-09-04] MEDS: SODIUM CHLORIDE 0.9% 1,000 ML 42 ML IV (14:13)
--- NOTE | 2018-09-04 14:14 | PM.HP.1 ---
History of Present Illness Date Patient Seen: 09/04/18 Time Patient Seen: 14:15 Chief complaint: [id number] Narrative: Dysphagia and heme-positive stools Patient History Medical History (Updated 09/03/18 @ 17:08 by Roxana Osorio RN) Blurred vision (Acute) Bruises easily (Acute) Difficulty walking (Acute) Dysphagia (Acute) Dysphagia as late effect of cerebrovascular disease (Acute) Fatigue (Acute) Joint pain (Acute) Memory disturbance (Acute) Skin mole (Acute) Social History household members: friend(s) Family & Social History Social History: household members friend(s) Meds Home Medications Medication Instructions Recorded Confirmed Type codeine-guaifenesin 5 ml PO Q4HP PRN #100 ml 01/30/17 Rx doxycycline monohydrate [Monodox] 100 mg PO BID #20 cap 01/30/17 Rx prednisone 20 mg PO QDAY #5 tab 01/30/17 Rx Plavix 09/03/18 History aspirin 81 mg PO DAILY 09/03/18 09/03/18 History atorvastatin [Lipitor] 10 mg PO DAILY 09/03/18 09/03/18 History cholecalciferol (vitamin D3) 50,000 unit PO DAILY 09/03/18 09/03/18 History losartan 25 mg PO DAILY 09/03/18 09/03/18 History Allergies Allergy/AdvReac Type Severity Reaction Status Date / Time acetaminophen Allergy Severe Unlisted Verified 09/03/18 17:07 amoxicillin [From AUGMENTIN] Allergy Severe HEART Unverified 08/01/17 11:50 PALPATIONS clavulanic acid Allergy Severe HEART Unverified 08/01/17 11:50 [From AUGMENTIN] PALPATIONS erythromycin base Allergy Severe Unlisted Verified 09/03/18 17:07 moxifloxacin Allergy Severe Unlisted Verified 09/03/18 17:07 Latex, Natural Rubber Allergy Mild Rash Verified 09/04/18 14:14 lisinopril [LISINOPRIL] AdvReac Severe COUGH Unverified 08/01/17 11:50 Exam Vital Signs (past 8 hours): - 09/04/18 13:43 Temperature 97.7 F Pulse Rate 89 Respiratory Rate 16 Blood Pressure 142/83 H Pulse Oximetry 97 Oxygen Delivery Method Room Air Narrative Exam Narrative: Oropharynx free of lesions Chest clear to auscultation percussion Cardiac exam reveals no S3 or murmur Assessment & Plan Assessment & Plan narrative: Dysphagia probably more cervical than substernal status post CVA rule out mechanical lesion Fecal occult blood positivity need for colonoscopy Difficulty with previous sedation need for anesthesia assistance Patient has seen Dr. Louise in the office and is aware of risks benefits alternatives. This will be performed with anesthesia assistance today
--- NOTE | 2018-09-04 14:17 | PM.OP.ENDO ---
Operative Date/Time/Diagnoses Date of procedure: 09/04/18 Time of procedure: 14:17 Pre-op diagnosis: See indication and findings Procedure & Clinicians Study performed: EGD and colonoscopy Same procedure as scheduled: Yes Indications: Dysphagia and fecal occult blood positivity Surgeon: Salma Logan Procedure Notes Procedure in detail: After informed consent was obtained the patient was placed in left lateral decubitus position. The video upper scope was placed into the oropharynx and with the patient's health swallowed into the esophagus. The esophagus, stomach, duodenum were carefully examined. On withdrawal retroflexed view the GE junction was performed. The patient tolerated the procedure well. The patient was then turned and the colonoscope was substituted. Thus introduced the rectum slowly advanced to the cecum. On slow withdrawal mucosa was carefully examined. The scope was removed. The patient tolerated procedure well. Preparation was good Blood loss none Complications none Medication MAC per Anesthesia Findings EGD 1. Normal esophagus 2. Mild gastric erythema in the antrum. Biopsies taken to rule out Helicobacter 3. Scattered somewhat nodular duodenitis in the bulb. No sarah erosion or ulcer 4. Normal duodenal sweep biopsies taken to rule out celiac Colonoscopy 1. Scattered very small diverticular orifices 2. 8 mm sessile polyp in the mid ascending colon cold snared and removed completely 3. Otherwise negative colonoscopy to cecum We will await biopsy results. She will certainly need follow-up colonoscopy in 5 years. There was no reason for his dysphagia on upper endoscopy. Her symptoms are probably residual from her CVA.
--- NOTE | 2018-09-04 14:59 | SUR.OPER ---
GLASSES IN LABELED BAG TO PACU WITH PATIENT
[2018-09-04 15:29] VITALS: BP 117/87; PULSE 81; RESP 12; TEMP 36.6; O2SAT 92
[2018-09-04 15:34] VITALS: BP 148/78; PULSE 73; RESP 12; O2SAT 99
[2018-09-04 15:42] VITALS: BP 151/86; PULSE 72; RESP 11; O2SAT 99
[2018-09-04 15:44] VITALS: BP 167/87; PULSE 70; RESP 11; O2SAT 98
[2018-09-04 15:57] VITALS: BP 172/84; PULSE 75; RESP 15; TEMP 37; O2SAT 99
== END 2018-09-04 16:29 ==
PROVIDERS: PCP Family Medicine; Visit Provider Internal Medicine Gastroenterology
PROC: 0DJ08ZZ Inspection of Upper Intestinal Tract, Via Natural or Artificial Opening Endoscopic (ICD-10-PCS; CPT 43235; principal; 2018-09-04 14:30)
PROC: 0DJD8ZZ Inspection of Lower Intestinal Tract, Via Natural or Artificial Opening Endoscopic (ICD-10-PCS; CPT 45378; 2018-09-04 14:30)
DX: R19.5 Other fecal abnormalities (principal); R13.12 Dysphagia, oropharyngeal phase; K57.30 Diverticulosis of large intestine without perforation or abscess without bleeding; K29.80 Duodenitis without bleeding; K44.9 Diaphragmatic hernia without obstruction or gangrene; K20.9 Esophagitis, unspecified; K22.2 Esophageal obstruction; K63.5 Polyp of colon
CPT/HCPCS: 45380; 43248; 43239; 88305; 88342; J2704

== ENCOUNTER → 2019-09-22 10:12 | Outpatient (CLI) | payer MEDICARE, OTHER, SELFPAY ==
--- NOTE | 2019-09-22 | DI.RAD.S_ITS ---
PROCEDURE: XR ANKLE LT 2V INDICATIONS: chronic left ankle pain TECHNIQUE: 2 views of the ankle were acquired. COMPARISON: None. FINDINGS: Bones: No fractures or dislocations. Ankle mortise is normally aligned. No suspicious bony lesions. Soft tissues: No tibiotalar joint effusion. Achilles tendon appears normal. IMPRESSION: No acute radiographic findings. If there is continued pain, followup exam or additional imaging such as MRI or CT could be performed for further assessment. Dictated by: Hannah Palomares M.D. on 09/22/2019 at 11:59 Approved by: Hannah Palomares M.D. on 09/22/2019 at 12:01
--- NOTE | 2019-09-22 | DI.RAD.S_ITS ---
PROCEDURE: XR FOOT LT 2V INDICATIONS: Left foot pain TECHNIQUE: 2 views of the foot were acquired. COMPARISON: None. FINDINGS: Bones: Hallux primus valgus deformity and degenerative changes are noted at the first metatarsal-phalangeal joint. No acute fracture or dislocation. Soft tissues: No tibiotalar joint effusion. Achilles tendon appears normal. IMPRESSION: Hallux primus valgus deformity. Dictated by: Hannah Palomares M.D. on 09/22/2019 at 12:01 Approved by: Hannah Palomares M.D. on 09/22/2019 at 12:02
== END ==
PROVIDERS: PCP Family Medicine; Referring Provider Family Medicine; Visit Provider Family Medicine
DX: M79.672 Pain in left foot (principal); M25.572 Pain in left ankle and joints of left foot; M20.12 Hallux valgus (acquired), left foot; G89.29 Other chronic pain
CPT/HCPCS: 73600; 73620

== ENCOUNTER → 2019-10-01 14:07 | Outpatient (CLI) | payer MEDICARE, OTHER, SELFPAY ==
--- NOTE | 2019-10-01 | DI.CT.S_ITS ---
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 Additional 1.5 mm axial sections acquired through the true vocal cords. 1 mm thick coronal reformats were generated. For radiation dose reduction, the following was used: automated exposure control. COMPARISON: [facility], CT, CT HEAD/BRAIN WO CON, 02/03/2018, 12:34. [facility], CT, CT ANGIO HEAD AND NECK, 02/03/2018, 13:05. FINDINGS: Image quality: Excellent. Vocal cords: According to the technologist notes, the patient had difficulty phonating the E. sound. The vocal cords appear symmetric on this study, without nodules or masses identified. Neck spaces: The oropharynx, nasopharynx, and pharynx demonstrate no mucosal lesions. The pyriform sinuses, epiglottis, vallecular, and tongue base all appear normal. Extramucosal spaces of the neck are unremarkable. Lymph nodes: No enlarged lymph nodes seen throughout the neck. Vessels: Visualized vasculature appears patent. Since the prior examination, a left carotid stent has been placed, with reconstitution of flow within the left internal carotid artery. Glands: The parotid and submandibular glands appear normal. Thyroid gland demonstrates no significant CT abnormality. Miscellaneous: There is again seen an enhancing extra-axial mass along the lateral aspect of the left middle cranial fossa measuring 1.7 cm. Lung apices appear clear. Superficial soft tissues appear normal. Bones: No suspicious bony lesions. Visualized sinuses and mastoids appear unremarkable. Relatively prominent cervical spine degenerative changes are seen inferiorly. IMPRESSION: No significant abnormality of the vocal cords is seen on these images. No masses are detected. No enlarged lymph nodes are seen. Interval placement of a left carotid stent, with reconstitution of the left internal carotid artery. Cervical spine degenerative changes are seen. Apparent left middle cranial fossa enhancing meningioma again seen. Dictated by: Austin Mcpherson M.D. on 10/01/2019 at 15:09 Approved by: Austin Mcpherson M.D. on 10/01/2019 at 15:13
[2019-10-01 14:40] LABS: BUN Creatinine Ratio 24.7 (6-22); Blood Urea Nitrogen 23 mg/dL (7-17); Estimated Glomerular Filt Rate 58.9 mL/min (>60)
== END ==
PROVIDERS: PCP Family Medicine; Referring Provider Otolaryngology; Visit Provider Otolaryngology
DX: J38.02 Paralysis of vocal cords and larynx, bilateral (principal); R49.0 Dysphonia; M47.812 Spondylosis without myelopathy or radiculopathy, cervical region
CPT/HCPCS: 36415; 70491; 82565; 84520; Q9967

== ENCOUNTER 2020-01-19 13:30 | Outpatient (RCR) | payer MEDICARE, OTHER, SELFPAY ==
--- NOTE | 2019-11-14 11:56 | ST.OPIE ---
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 Jhony Varma, ENT Reason for Referral Left Vocal Cord Paralysis Setting Setting Outpatient Care Patient History General Information The pt is a 74-yr old female who suddenly lost her voice about 3 months ago. She returned 07/12/19 from a trip to [facility]. About 2-3 wks later, she lost her voice in the absence of any cold or illness. She thought she had laryngitis but her voice has not returned. She was seen by Dr. 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 CT of neck was ordered and showed no significant abnormality of the vocal cords , no mass pathology in the course of the recurrent laryngeal nerve. She was then referred to Dr. Llanos for videostroboscopy, which revealed present but severely decreased left and right VF vibratory wave, improved since Dr. Melchor's findings of complete paralysis of left VF. Additionally, VF edges were smooth, normal right VF mobility, moderately decreased left VF mobility, anterior glottic gap, mild hypertrophy of posterior commisssure, and moderate phase asymmetry. Dr. Varma discussed options of observation, VF injection, and voice therapy. The pt expressed desire to pursue voice therapy first. PMHx is significant for stroke (01/2018) and hip surgery. Pt ambulates sometimes with single brace/crutch assistance . Hearing Hearing Level Normal Vision Vision Status Not Impaired [employer] [place] Langauge Language(s) Spoken in the Home Portuguese, [place]orese Educational Status Education Level 1 yr university Occupational Status Occupation Status Retired/Has not worked since her youth Previous Therapy Previous Speech-Language Therapy Yes History of Previous Therapy For language following stroke Subjective Subjective The pt arrived on time and provided case history. - Laryngeal Performance Voice Handicap Index Function Subtotal 21 (Severe) Physical Subtotal 29 (Severe) Emotional Subtotal 0 (WNL) Total Score 50 Severity Moderate (31-60) CAPE-V Overall Severity 91% (Severe) Roughness 10% (Mild; primarily an absence of voicing) Breathiness 88% (Severe) Strain 72% (Severe) Pitch 89% (Severe, limited phonation /aphonia, pitch breaks when present) Loudness 85% (Severely reduce, aphonic) Normal Resonance? Yes Additional Features Aphonia,Pitch Instability Maximum Phonation Time MPT Norms: Women (15-25) Men (25-35) Loudness (50-60 dB); Speaking Rate: Oral Reading of Sentences (190 Words Per Minute); Oral Reading of Paragraphs (160-170 WPM); Speaking Rate in Conversation (150-250 WPM) Maximum Phonation Time <2 sec Maximum Phonation Time Reduced Maximum Phonation Time Comments Phonation absent upon initiation. Appears intermittently; pt unable to sustain. Jitter/Shimmer Norms: Jitter (Less than or equal to 1.040% - Frequency) Norms: Shimmer (Less than or equal to 3.810% - Amplitude) Jitter Unable to test d/t absence/ breaks in phonation Shimmer Unable to test d/t absence/ breaks in phonation Pitch [place] Pitch [place]ederland Comments Unable to test d/t absence/ breaks in phonation Muscle Tension Assessment Muscle Tension Assessment Comments Laryngeal tension with attempts at phonation. No observable tension at rest Tenderness with Palpation/Massage No Breath Support Breath Support Conversation Comment Largely whispers during conversation; utterance production WNL per breath. Speaks on Room Air Yes Voice Pitch Range Norms: Women (100-300 Hz) Men (70-250 Hz) Fundamental Frequency Norms: Women (Mean: 225 Hz; Range: 155-334 Hz) Men ( Mean: 128 Hz; Range: 85-196 Hz) Fundamental Frequency Pt tends to speak at higher than normal pitch in attempt to elicit voice Paradoxical Vocal Fold Movement No Indications Resonance Nasal Resonance Normal Oral Resonance Normal Therapeutic Techniques Therapy Tactics Shifting Tone Focus,Hard Glottal Onset,Breath Support, Laryngeal Manipulation, Increase Loudness,Increase Fundamental Frequency,Decrease Fundamental Frequency Other Tactics Yawn-Sigh, throat clearing Findings Findings Severe Impairment Observations No benefit from above therapy tactics with exception of throat clearing, during which the pt consistently produced phonation. No improvement with other adduction tactics including staccato vowel production and pulling (into chair) technique. Voice/Resonance Assessment Assessment The pt presents with severely impaired vocal quality secondary to reduced R/L VF vibratory wave with greater impairment of L) than R). Voice is characterized by severe breathiness, nearly aphonic quality with phonation produced only intermittently. Phonation does appear in spontaneous throat clearing. Given the occasional presence of voicing and ENT findings, it is hopeful that voice therapy will be able to increase voice production through techniques targeting laryngeal relaxation and adduction strategies and exercises. The pt was informed of findings. Discussed possible need for injection if voice therapy does not produce desired effects. The pt verbalized understanding and reiterated desire to pursue voice therapy. Prognosis Rehabilitation Potential Good - Recommendations Treatment Recommended Yes Treatment Frequency/Duration 1x/wk for 8-12 wks Placement Recommendation Home Therapy Recommendations Education and training in laryngeal relaxation, adduction exercises, and breath support to power voice. Short Term Goals 1. The pt will perform diaphragmatic breathing techniques with min prompts to optimize breath support for voice/speech. 2. The pt will perform laryngopharyngeal relaxation exercises/techniques with min prompts to reduce tension and improve phonation production. 3. The pt will perform VF adduction exercises to elicit phonation and improve ability to produce voice. 4. The pt will produce sustained phonation for at least 5 sec without pitch breaks to increase VF vibration and ability to produce voice for speech. [facility] Goals 1. The pt will perform diaphragmatic breathing techniques independently during VF adduction exercises to optimize breath support for voice and speech. 2. The pt will produce sustained phonation for at least 10 sec without pitch breaks to increase VF vibration and ability to produce voice for speech. 3. The pt will produce consistent voicing in short conversations to improve ability to communicate in her functional environment. Patient/Caregiver Education Patient/Family Education Described results of evaluation,Patient Understanding,Patient Needs More Info
--- NOTE | 2019-11-24 17:20 | ST.OPTN ---
Visit Care Team Role Provider Type Keyla Larsen MD Primary Care Provider Non-Staff Address: [address] [place] [address], [place], [address] Jhony Varma Attending Provider Non-Staff Referring Provider Address: [facility] Max Brown [address], [address] AIRPORT GUIDE Treatment Note AIRPORT GUIDE Treatment Note Start: 11/11/19 13:30 Freq: Status: Active Protocol: Document 11/24/19 17:06 MELANIE (Rec: 11/24/19 17:18 MELANIE [id number]) Speech Pathology Treatment Note Session Time Visit Start Time 14:30 Visit Stop Time 15:15 Total Visit Minutes 45 Visit Information Visit Number 1 Plan of Care Dates 11/11/19 - 02/04/20 Insurance Information Medicare Setting Treatment Setting Outpatient Care Visit Type Note Type Treatment Note Next Note Type Next Note Type Treatment Note General Information General Information The pt is a 74-yr old female who suddenly lost her voice about 3 months ago. She returned 07/12/19 from a trip to [facility]. About 2-3 wks later, she lost her voice in the absence of any cold or illness. She thought she had laryngitis but her voice has not returned. She was seen by Dr. 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 CT of neck was ordered and showed no significant abnormality of the vocal cords , no mass pathology in the course of the recurrent laryngeal nerve. She was then referred to Dr. Llanos for videostroboscopy, which revealed present but severely decreased left and right VF vibratory wave, improved since Dr. Melchor's findings of complete paralysis of left VF. Additionally, VF edges were smooth, normal right VF movility, moderately decreased left VF mobility, anterior glottic gap, mild hypertrophy of posterior commisssure, and moderate phase asymmetry. Dr. Varma discussed options of observation, VF injection, and voice therapy. The pt expressed desire to pursue voice therapy first. Subjective Identification Type Name,ID Card Observations/Patient Presentation The pt arrived on time and reported improvement in voice production since following recommendations made at initial evaluation. Chief Complaint(s) Voice Patient Knowledge/Awareness of AIRPORT GUIDE Role Good in Treatment Patient/Caregiver Compliance with Home Excellent Exercise Program Objective Short Term Goals 1. The pt will perform diaphragmatic breathing techniques with min prompts to optimize breath support for voice/speech. 2. The pt will perform laryngopharyngeal relaxation exercises/techniques with min prompts to reduce tension and improve phonation production. 3. The pt will perform VF adduction exercises to elicit phonation and improve ability to produce voice. 4. The pt will produce sustained phonation for at least 5 sec without pitch breaks to increase VF vibration and ability to produce voice for speech. [ End ] Penitentiary Goals 1. The pt will perform diaphragmatic breathing techniques independently during VF adduction exercises to optimize breath support for voice and speech. 2. The pt will produce sustained phonation for at least 10 sec without pitch breaks to increase VF vibration and ability to produce voice for speech. 3. The pt will produce consistent voicing in short conversations to improve ability to communicate in her functional environment. Treatment Activities Assessed pt's ability to produce continuous phonation via speech samples including conversation, vowel-onset words/phrases/sentences, continuous voiced words. Overall, the pt exhibited significant improvement of voice production. Observed phonatory breaks primarily with vowels in initial position of words and when following plosives, which continues with high frequency. Education and feedback was provided. Therapeutic trails performed with vowels in isolation and in CV syllables using voiceless consonants in initial position. Also trialed linking of voiced consonants to vowel onset words, as well as varied rates of speech and increased breath support. The pt was responsive to all trials with increasing phonation observed both in tasks and, by end of session, in conversation. Tasks were added to HEP. The pt demonstrated good understanding an motivation to practice. She expressed being encouraged with progress to date. Discussed POC and agreed to reduce frequency to 1 visit every 2 weeks. Assessment Patient Response to Treatment Good Rehab Potential Good Impairments Identified Dysphonia,Vocal Quality Progress Towards Goals Good Progress Assessment of Overall Progress Improving Assessment of Improvement The pt presented today with increased continuous voicing as compared to last visit but continued frequent breaks in phonation, particularly with increased pitch and with vowels in initial positions of words and following voiceless plossives. She was responsive to therapeutic trials with improved voicing in conversation by end of session . Reviewed with Patient Goals,Progress Being Made,Home Exercise Program Patient/Caregiver Understanding Excellent Plan Amount of Therapy Recommended 1-2 Months Comment 1 visit every 2 wks Length of Session 45 Minutes Therapeutic Contents Client Education,Home Exercise Program,Voice Training Provided Patient/Caregiver Instruction Home Exercise Program,Plan of Care,Questions/Concerns Therapy Recommendations Continue with Current Program
--- NOTE | 2019-12-10 17:57 | ST.OPTN ---
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 She returned 07/12/19 from a trip to [facility]. About 2-3 wks later, she lost her voice in the absence of any cold or illness. She thought she had laryngitis but her voice has not returned. She was seen by Dr. 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 CT of neck was ordered and showed no significant abnormality of the vocal cords , no mass pathology in the course of the recurrent laryngeal nerve. She was then referred to Dr. Llanos for videostroboscopy, which revealed present but severely decreased left and right VF vibratory wave, improved since Dr. Melchor's findings of complete paralysis of left VF. Additionally, VF edges were smooth, normal right VF movility, moderately decreased left VF mobility, anterior glottic gap, mild hypertrophy of posterior commisssure, and moderate phase asymmetry. Dr. Varma discussed options of observation, VF injection, and voice therapy. The pt expressed desire to pursue voice therapy first. Subjective Identification Type Name,ID Card Observations/Patient Presentation Pt arrived on time but session began 10 minutes late due to a misunderstanding of check-in routine. The pt reported compliance with and benefit from HEP tasks, reporting and demonstrating improved continual phonation in conversational speech and increased volume. 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 The pt will perform diaphragmatic breathing techniques with min prompts to optimize breath support for voice/speech. 2. The pt will perform laryngopharyngeal relaxation exercises/techniques with min prompts to reduce tension and improve phonation production. 3. The pt will perform VF adduction exercises to elicit phonation and improve ability to produce voice. 4. The pt will produce sustained phonation for at least 5 sec without pitch breaks to increase VF vibration and ability to produce voice for speech. [ End ] Clinical Exercise Specialist Goals 1. The pt will perform diaphragmatic breathing techniques independently during VF adduction exercises to optimize breath support for voice and speech. 2. The pt will produce sustained phonation for at least 10 sec without pitch breaks to increase VF vibration and ability to produce voice for speech. 3. The pt will produce consistent voicing in short conversations to improve ability to communicate in her functional environment. Treatment Activities The pt completed continuous phonation tasks targeting voiceless-voiced transitions, with significantly declined aphonic episodes. She continues to frequently lose phonation with vowels, particuarly following voiceless plosives and r- blends (e.g., frog, string, truck). Trials of increasing effort on vowels were intermittently effective. Pt also completed respiratory exercises including reading sentence of increasing length on single breath. The pt performed WNL. In these exercises as well as conversational speech, the pt exhibited significantly less breathiness of voice and required less frequent breaths as compared to SOC, as measured by comparisons with auditory replay of voice recordings from initial evaluation. Assessment Patient Response to Treatment Excellent Rehab Potential Good Impairments Identified Dysphonia,Vocal Quality Progress Towards Goals Excellent Progress,Good Progress Assessment of Overall Progress Improving Assessment of Improvement The pt is making very good progress toward goals with significantly increased continuous phonation and reduced breathiness of voice. She persists with occasional breaks of phonation on vowels following voiceless plosives and r-blends, and vocal loudness is perceived to be increased since SOC but remains below normal levels. Reviewed with Patient Goals,Progress Being Made,Home Exercise Program Patient/Caregiver Understanding Excellent Plan Amount of Therapy Recommended 1-2 Months Comment 1 visit every 2 wks Length of Session 45 Minutes Therapeutic Contents Client Education,Home Exercise Program,Voice Training Provided Patient/Caregiver Instruction Home Exercise Program,Plan of Care,Questions/Concerns Therapy Recommendations Continue with Current Program
--- NOTE | 2020-01-20 17:10 | ST.OPTN ---
Visit Care Team Role Provider Type Keyla Larsen MD Primary Care Provider Non-Staff Address: [address] [place] [address], [place], [address] Jhony Varma Attending Provider Non-Staff Referring Provider Address: [address], [address] IT ADMIN Treatment Note IT ADMIN Treatment Note Start: 11/11/19 13:30 Freq: Status: Active Protocol: Document 01/19/20 17:26 MELANIE (Rec: 01/19/20 17:30 MELANIE [id number]) Speech Pathology Treatment Note Session Time Visit Start Time 13:30 Visit Stop Time 14:20 Total Visit Minutes 50 Visit Information Visit Number 3 Plan of Care Dates 11/11/19 - 02/04/20 Insurance Information Medicare Setting Treatment Setting Outpatient Care Visit Type Note Type Discharge Summary General Information General Information The pt is a 74-yr old female who suddenly lost her voice about 3 months ago. She returned 07/12/19 from a trip to [facility]. About 2-3 wks later, she lost her voice in the absence of any cold or illness. She thought she had laryngitis but her voice has not returned. She was seen by Dr. 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 CT of neck was ordered and showed no significant abnormality of the vocal cords , no mass pathology in the course of the recurrent laryngeal nerve. She was then referred to Dr. Llanos for videostroboscopy, which revealed present but severely decreased left and right VF vibratory wave, improved since Dr. Melchor's findings of complete paralysis of left VF. Additionally, VF edges were smooth, normal right VF movility, moderately decreased left VF mobility, anterior glottic gap, mild hypertrophy of posterior commisssure, and moderate phase asymmetry. Dr. Varma discussed options of observation, VF injection, and voice therapy. The pt expressed desire to pursue voice therapy first. Subjective Identification Type Name,ID Card Observations/Patient Presentation Pt arrived on time. Reported improved ability to produce voice, carry on conversations up to 10 minutes in length both in person and on the phone, and increased confidence in speaking up for herself when needed. She reported excellent compliance with HEP and an intention to continue with exercises. Upon discussions of POC, she stated she felt confident in discharging from skilled intervention and requested a copy of the discharge summary be sent to her PCP, Dr. Larsen. IT ADMIN agreed. Chief Complaint(s) Voice Patient Knowledge/Awareness of IT ADMIN Role Good in Treatment Patient/Caregiver Compliance with Home Excellent Exercise Program Objective Short Term Goals 1. The pt will perform diaphragmatic breathing techniques with min prompts to optimize breath support for voice/speech. GOAL MET 2. The pt will perform laryngopharyngeal relaxation exercises/techniques with min prompts to reduce tension and improve phonation production. GOAL MET 3. The pt will perform VF adduction exercises to elicit phonation and improve ability to produce voice. GOAL MET 4. The pt will produce sustained phonation for at least 5 sec without pitch breaks to increase VF vibration and ability to produce voice for speech. GOAL EXCEEDED [ End ] Mine Engineering Superintendent Goals 1. The pt will perform diaphragmatic breathing techniques independently during VF adduction exercises to optimize breath support for voice and speech. GOAL MET 2. The pt will produce sustained phonation for at least 10 sec without pitch breaks to increase VF vibration and ability to produce voice for speech. GOAL MET 3. The pt will produce consistent voicing in short conversations to improve ability to communicate in her functional environment. GOAL MET Treatment Activities Assessed pt's vocal quality via acoustic, behavior, and subjective measurements: Fundamental Frequency: 185, WNL Jitter: 1.62% (Norm = 1.040% or below) Shimmer: 3.72 (Norm = 3.891% or below) Maximum Phonation Time: 12.2 sec (Norm for women = 15-25 sec) Note: At SOC, Jitter and Shimmer were not able to be determined and MPT was <1 sec d/t pt's inability to produce adequate voicing. VHI pt questionnaire: 31 total pts, Minimal impact; Functional Scale: 15, Moderate -Severe (Severe at SOC); Physical Scale: 11, WNL ( Severe at SOC); and Emotional Scale: 3, WFL (No impact at SOC). Upon discussion and comparison of VHI scores at start and end of care, the pt stated she felt she had been confused at SOC about the rating scale and that her SOC numbers should have been much higher. She also stated that she felt more aware of her voice and others' reactions to it now, which may have impacted her current scores. Nevertheless, significant overall improvement is demonstrated. CAPE-V clinician perceptual ratin%, Mild (91%, Severe at SOC); Roughness WNL (10%, Mild at SOC); Breathiness 13% Mild (88%, Severe at SOC); Strain WNL (72%, Severe at SOC ); Pitch 3% Mild with occ breaks or aphonia and minimal instability (89%, Severe at SOC); Loudness 8% reduced ( 85 %, Severe at SOC). Educated pt of results and discussed POC. The pt is independent and compliant with HEP. Anticipate continued practice will yield further improvement of vocal quality. Max extent of skilled benefit has been attained. The pt is appropriate for discharge and was in agreement with that recommendation. Assessment Patient Response to Treatment Excellent Rehab Potential Excellent Impairments Identified Dysphonia,Vocal Quality Progress Towards Goals Excellent Progress,Good Progress Assessment of Overall Progress Improving Assessment of Improvement Over the course of treatment, the pt has made consistent and excellent improvement secondary to strict compliance with HEP recommendations. Vocal quality is at or approaching normal limits in all characteristics and is anticipated to continue to improve with ongoing consistent practice. The pt has demonstrated excellent understanding of all education and training and ability to perform HEP tasks independently. She reports significant increase independence and ability to use her voice for functional communication, including using the phone and speaking up for herself in times of conflict, both of which she defaulted to others at SOC. The pt expressed pleasure at the progress she has made and intention to continue her home practice. The pt had no further questions or concerns to be address via skilled intervention and will be discharged at this time. Reviewed with Patient Goals,Progress Being Made,Home Exercise Program Patient/Caregiver Understanding Excellent Plan Frequency of Treatment No Further Therapy Therapeutic Contents Client Education,Home Exercise Program,Voice Training Provided Patient/Caregiver Instruction Home Exercise Program,Plan of Care,Questions/Concerns Therapy Recommendations Discharge to Home Exercise Program
== END 2020-01-23 08:51 ==
LOC: SP 13:30
PROVIDERS: PCP Family Medicine; Referring Provider Specialist; Visit Provider Specialist
DX: J38.01 Paralysis of vocal cords and larynx, unilateral (principal)
CPT/HCPCS: 92507; 92520; 92524

== ENCOUNTER → 2020-05-19 14:58 | Outpatient (CLI) | payer MEDICARE, OTHER, SELFPAY ==
[2020-05-19] MEDS: COVID-19 VACC #1, MRNA(MOD) 100 MCG/0.5 ML VIAL IM (15:05)
== END ==
PROVIDERS: PCP Family Medicine; Visit Provider Internal Medicine
DX: Z23 Encounter for immunization (principal)
CPT/HCPCS: 0011A; 91301

== ENCOUNTER → 2020-06-16 13:48 | Outpatient (CLI) | payer MEDICARE, OTHER, SELFPAY ==
[2020-06-16] MEDS: COVID-19 VACC #2, MRNA(MOD) 100 MCG/0.5 ML VIAL IM (13:58)
== END ==
PROVIDERS: PCP Family Medicine; Visit Provider Internal Medicine
DX: Z23 Encounter for immunization (principal)
CPT/HCPCS: 0012A; 91301

== ENCOUNTER 2022-11-20 11:37 | Emergency (ER) | payer MEDICARE, OTHER, SELFPAY ==
[2022-11-20 11:43] VITALS: BP 177/85; PULSE 84; RESP 16; TEMP 35.8; O2SAT 98; BMI 34.9
--- NOTE | 2022-11-20 11:49 | DI.US.S_ITS ---
PROCEDURE: US PERIPH VENOUS LOW EXTREM BI INDICATIONS: RIGHT LOWER LEG SWELLING TECHNIQUE: Real-time imaging, as well as color and pulse Doppler interrogation, were performed of the deep veins of both legs from the inguinal ligament to the popliteal fossa. COMPARISON: None. FINDINGS: Right: The common femoral, femoral and popliteal veins are normally compressible, and free of intraluminal thrombus. Color and pulse Doppler demonstrate normal phasic intravascular flow. There is normal augmentation response to distal compression maneuver. Right calf edema is noted. Left: The common femoral, femoral and popliteal veins are normally compressible, and free of intraluminal thrombus. Color and pulse Doppler demonstrate normal phasic intravascular flow. There is normal augmentation response to distal compression maneuver. IMPRESSION: No evidence of DVT. Right calf edema is noted. Dictated by: Liam De La Garza M.D. on 11/20/2022 at 12:45 Approved by: Liam De La Garza M.D. on 11/20/2022 at 12:47
--- NOTE | 2022-11-20 12:14 | ED_ITS ---
HPI - Extremity Problem <Meagan Concepcion PA-C - Last Filed: 11/20/22 19:00> General Chief complaint: Extremity Problem,Nontraumatic Stated complaint: Cellulitus, Right Leg Time Seen by Provider: 11/20/22 11:56 Mode of arrival: Family Vehicle History of Present Illness HPI Narrative: 77-year-old female with a history of bronchitis, reactive airway disease, CVA, partial right knee replacement presents with concern for right lower extremity swelling some redness and pain with weeping recently and concern for cellulitis. Patient states that she is had mild leg swelling and slight redness of the skin for about the past month she has not thought a whole lot about it because she states it is not very painful she does feel pain on the front of her bowie especially when she is walking in the skin stretches because it is tight she states ?it feels like a burning or stinging sometimes that is sharp and intermittent?. In the past few days she scratched the back of her leg and created some small scabs and states that she has had some slight weeping from this area and is concerned that she may have cellulitis. She denies having any recent fevers or chills but does state that she has been less active for the past few months ever since she had her stroke she has not been walking around as much. She does feel she may be a little bit short of breath with climbing stairs and physical activity but is unsure if this is baseline or worse than baseline for her. She endorses that she is working on getting in to see cardiology and has had an ongoing issue with gradual weight gain over the past year with an unknown cause. She denies any chest pain, upper back pain, shortness of breath, headache, vision change or any other symptoms. Related Data Home Medications Medication Instructions Recorded Confirmed Plavix 09/03/18 aspirin 81 mg tablet,delayed 81 mg PO DAILY 09/03/18 09/03/18 release atorvastatin 10 mg tablet (Lipitor) 10 mg PO DAILY 09/03/18 09/03/18 cholecalciferol (vitamin D3) 1,250 50,000 unit PO DAILY 09/03/18 09/03/18 mcg (50,000 unit) tablet losartan 50 mg tablet 25 mg PO DAILY 09/03/18 09/03/18 Previous Rx's Medication Instructions Recorded codeine 10 mg-guaifenesin 100 mg/5 5 ml PO Q4HP PRN #100 mL 01/30/17 mL oral liquid doxycycline monohydrate 100 mg 100 mg PO BID #20 caps 01/30/17 capsule (Monodox) prednisone 20 mg tablet 20 mg PO QDAY #5 tabs 01/30/17 cephalexin 500 mg capsule 500 mg PO BID Cellulitis 10 days 11/20/22 #20 caps Allergies Allergy/AdvReac Type Severity Reaction Status Date / Time acetaminophen Allergy Severe Unlisted Verified 11/20/22 11:46 amoxicillin [From AUGMENTIN] Allergy Severe HEART Unverified 11/20/22 11:46 PALPATIONS clavulanic acid Allergy Severe HEART Unverified 11/20/22 11:46 [From AUGMENTIN] PALPATIONS erythromycin base Allergy Severe Unlisted Verified 11/20/22 11:46 moxifloxacin Allergy Severe Unlisted Verified 11/20/22 11:46 Latex, Natural Rubber Allergy Mild Rash Verified 11/20/22 11:46 lisinopril [LISINOPRIL] AdvReac Severe COUGH Unverified 11/20/22 11:46 Review of Systems <Meagan Concepcion PA-C - Last Filed: 11/20/22 19:00> Review of Systems Narrative: See HPI Patient History <Meagan Concepcion PA-C - Last Filed: 11/20/22 19:00> Medical History Blurred vision Bruises easily Difficulty walking Dysphagia Dysphagia as late effect of cerebrovascular disease Fatigue Joint pain Memory disturbance Skin mole Social History household members: friend(s) Smoking Status: Former smoker Smoking Status: Former smoker alcohol intake frequency: 0-2 drinks per day Substance Use Type: does not use Exam <Meagan Concepcion PA-C - Last Filed: 11/20/22 19:00> Narrative Exam Narrative: GENERAL: 77 year old patient appears stated age. Well-developed patient, in mild distress. HEAD: Atraumatic. Normocephalic. EYES: Pupils equal round and reactive. Extraocular motions intact. No scleral icterus. No injection or drainage. ENT: Nose without bleeding, purulent drainage. Airway patent. NECK: Trachea midline. CARDIOVASCULAR: Regular rate and rhythm without murmurs, gallops, or rubs. RESPIRATORY: Clear to auscultation. Breath sounds equal bilaterally. No wheezes, rales, or rhonchi. GASTROINTESTINAL: Abdomen soft, non-tender, nondistended. EXTREMITIES: There is qfec-hy-lyndgcvx edema of the right lower extremity calf ankle and pretibial, there is mild erythema notable on the lower and mid calf and anterior bowie. Patient is sensitive to light touch of the area of erythema and has tenderness with palpation over the calf and bowie. Pedal pulse intact. There is a well-healed surgical scar over the right knee also a well-healed s urgical scar over the left medial ankle. There is no popliteal fossa tenderness patient has normal active range of motion of the ankle and knee but does endorse increased ?tightness? with flexion/extension at the ankle No other edema or joint tenderness. NEURO: AOx3. SKIN: No rash or erythema of visible areas Initial Vital Signs Initial Vital Signs: Vital Signs Temperature 96.4 F L 11/20/22 11:43 Pulse Rate 84 11/20/22 11:43 Respiratory Rate 16 11/20/22 11:43 Blood Pressure 177/85 H 11/20/22 11:43 Pulse Oximetry 98 11/20/22 11:43 Oxygen Delivery Method Room Air 11/20/22 11:43 <Wes Cagle DO - Last Filed: 11/20/22 19:01> Initial Vital Signs Initial Vital Signs: Vital Signs Temperature 96.4 F L 11/20/22 11:43 Pulse Rate 84 11/20/22 11:43 Respiratory Rate 16 11/20/22 11:43 Blood Pressure 177/85 H 11/20/22 11:43 Pulse Oximetry 98 11/20/22 11:43 Oxygen Delivery Method Room Air 11/20/22 11:43 Course <Meagan Concepcion PA-C - Last Filed: 11/20/22 19:00> Course Course Narrative: updated pt regarding return of labs and ultrasound results, as well as the fact that we are getting a CXR given report of increased SHOB from baseline and slightly elevated BNP today on labs. 1315 Orders Ordered: ED Orders 11/20/22 11:49 US periph venous low extrem bi Stat 11/20/22 12:28 BNP [NT-proBNP (BNP-Adult 18+)] Stat Complete Blood Count AUTO DIFF Stat Comprehensive Metabolic Panel Stat Troponin & CK Cardiac Panel Stat 11/20/22 13:13 XR chest 2V Stat Vital Signs Vital signs: Vital Signs - 8 hr 11/20/22 11:43 11/20/22 13:20 Temperature 96.4 F L Pulse Rate 84 72 Respiratory Rate 16 16 Blood Pressure 177/85 H 179/87 H Pulse Oximetry 98 98 Oxygen Delivery Method Room Air Room Air <Wes Cagle DO - Last Filed: 11/20/22 19:01> Orders Ordered: ED Orders 11/20/22 11:49 US periph venous low extrem bi Stat 11/20/22 12:28 BNP [NT-proBNP (BNP-Adult 18+)] Stat Complete Blood Count AUTO DIFF Stat Comprehensive Metabolic Panel Stat Troponin & CK Cardiac Panel Stat 11/20/22 13:13 XR chest 2V Stat Vital Signs Vital signs: Vital Signs - 8 hr 11/20/22 11:43 11/20/22 13:20 Temperature 96.4 F L Pulse Rate 84 72 Respiratory Rate 16 16 Blood Pressure 177/85 H 179/87 H Pulse Oximetry 98 98 Oxygen Delivery Method Room Air Room Air MDM - Extremity (Nontraumatic) <Meagan Concepcion PA-C - Last Filed: 11/20/22 19:00> Differential Diagnosis Differential diagnosis: Likely cellulitis, superficial thrombophlebitis, deep venous thrombosis of upper extremity and lower extremity edema Medical Records Attestation: I reviewed the patient's medical records. Lab Data Attestation: I reviewed the patient's lab results. 11/20/22 12:28 11/20/22 12:28 Labs: Lab Results 11/20/22 11/20/22 11/20/22 Range/Units 12:28 12:28 12:28 WBC 7.1 (4.5-11.0) X10^3/uL RBC 3.86 L (4.0-5.2) X10^6/uL Hgb 11.8 L (12.0-16.0) g/dL Hct 35.1 L (36-46) % MCV 91.0 (80-100) fL MCH 30.7 (26-34) PG MCHC 33.8 (30-36) % RDW 14.1 (11.6-14.8) % Plt Count 200 (150-400) X10^3/uL Neut % (Auto) 66.9 (50-75) % Lymph % (Auto) 21.7 L (25-40) % [place] % (Auto) 8.8 (3-14) % Eos % (Auto) 2.0 (2-4) % Baso % (Auto) 0.6 (0-2) % Neut # (Auto) 4700 (5729-6368) /uL Lymph # (Auto) 1500 (9876-3832) /uL [place] # (Auto) 600 (0-900) /uL Eos # (Auto) 100 (0-450) /uL Baso # (Auto) 0 (0-100) /uL Sodium 139 (137-145) mmol/L Potassium 4.3 (3.4-5.1) mmol/L Chloride 107 (98-107) mmol/L Carbon Dioxide 27 (22-32) mmol/L BUN 32 H (7-17) mg/dL Creatinine 0.91 (0.52-1.04) mg/dL Estimated GFR > 60 (>60) mL/min BUN/Creatinine Ratio 35.2 H (6-22) Glucose 105 (80-110) mg/dL Calcium 9.2 (8.4-10.2) mg/dL Total Bilirubin 0.6 (0.2-1.3) mg/dL AST 29 (14-36) IU/L ALT 27 (<35) IU/L Alkaline Phosphatase 99 (38-126) U/L Total Creatine Kinase 88 (30-135) U/L Troponin I < 0.012 (0.01-0.034) ng/mL NT-Pro-B Natriuret Pep 502 H (<450) pg/mL Total Protein 7.1 (6.3-8.2) g/dL Albumin 4.2 (3.5-5.0) g/dL Globulin 2.9 (1.7-4.1) g/dL Albumin/Globulin Ratio 1.4 (1.0-2.8) Imaging Data US - DVT: Radiologist's Impression: [address] [address] Ultrasound Report Signed Patient: Marielos Walker MR#: [id number] : 1945 Acct:[id number] Age/Sex: 77 / F Date of Service: 11/20/22 Loc: ED Accession Number: [id number] ?? Procedure: US periph venous low extrem bi Ordering Provider: Meagan Concepcion P.A-C PROCEDURE:? US PERIPH VENOUS LOW EXTREM BI ? INDICATIONS:? RIGHT LOWER LEG SWELLING ? TECHNIQUE:? Real-time imaging, as well as color and pulse Doppler interrogation, were performed of the deep veins of both legs from the inguinal ligament to the popliteal fossa.? ? COMPARISON:? None. ? FINDINGS:? ? Right: The common femoral, femoral and popliteal veins are normally compressible, and free of intraluminal thrombus.? Color and pulse Doppler demonstrate normal phasic intravascular flow.? There is normal augmentation response to distal compression maneuver.? Right calf edema is noted. ? Left: The common femoral, femoral and popliteal veins are normally compressible, and free of intraluminal thrombus.? Color and pulse Doppler demonstrate normal phasic intravascular flow.? There is normal augmentation response to distal compression maneuver.? ? ? IMPRESSION:? No evidence of DVT.? Right calf edema is noted. ? ? Dictated by: Liam De La Garza M.D. on 11/20/2022 at 12:45 ? ? Approved by: Liam De La Garza M.D. on 11/20/2022 at 12:47?? Chest x-ray: My Impression: Agree with Radiology interpretation Radiologist's Impression: [place] [address] XRay Report Signed Patient: Marielos Walker MR#: [id number] : 1945 Acct:[id number] Age/Sex: 77 / F Date of Service: 11/20/22 Loc: ED Accession Number: [id number] ?? Procedure: XR chest 2V Ordering Provider: Meagan Concepcion P.A-C PROCEDURE:? XR CHEST 2V ? INDICATIONS:? SHOB w/ exertion, leg swelling ? TECHNIQUE:? 2 views of the chest were acquired.? ? COMPARISON:? [facility] , CHEST 2 VIEW, 01/30/2017, 15:13. ? FINDINGS:? ? Surgical changes and devices:? None.? ? Lungs and pleura:? Prominence of the pulmonary vasculature.? No focal pulmonary consolidations.? The left costophrenic angle is mildly blunted. ? Mediastinum:? Mediastinal contours are normal.? Heart size is normal.? ? Bones and chest wall:? No suspicious bony abnormalities.? Degenerative changes of the spine.? Soft tissues appear unremarkable.? ? IMPRESSION:? Pulmonary vascular congestion.? Blunting left costophrenic angle may represent trace effusion.? No focal pulmonary consolidations. ? ? Dictated by: Liam De La Garza M.D. on 11/20/2022 at 13:49 ? ? Approved by: Liam De La Garza M.D. on 11/20/2022 at 13:50?? MDM Narrative Medical decision making narrative: This is a well-appearing 77-year-old woman with a history of CVA, right partial knee replacement reactive airway and bronchitis who presents with concern for p ossible infection of her of right lower extremity with 1 month of swelling, edema redness and mild pain that has recently been worsening with some weeping from the back of her leg where she scratched it. Exam is suggestive of cellulitis given she is very tender to light palpation and there is erythema present without significant heat however given this has been going on for a month and the right calf is notably more swollen than the left DVT ultrasound is obtained for further evaluation. Bilateral DVT ultrasound returns negative. Because patient has also endorsed some recent shortness of breath with exertion and activity basic labs are also obtained including CBC CMP troponin and CK as well as BNP. These returned unremarkable although the BNP is slightly elevated above baseline and a chest x-ray is also obtained for further evaluation. Chest x-ray suggests a very trace pleural effusion which I suspect may be related/consistent with the elevated BNP. Discussed this with the patient and given the very slight change in BNP and very subtle finding on chest x-ray do not think that she needs treatment today for this she is currently on track to be seen by Cardiology and is encouraged to follow-up closely with her PCP consider having her BNP rechecked in the next 1-2 weeks and certainly if she has persistent or worsening symptoms or new symptoms arising such as chest pain she will seek re-evaluation immediately. Regarding her right lower extremity swelling and erythema, she is placed on cephalexin for this as it is most consistent with cellulitis after she was found to be negative for DVT. Dr. Cagle was also involved in this patient's care; Return precautions provided, follow-up plan discussed, all questions answered. <Wes Gurjit, DO - Last Filed: 11/20/22 19:01> Lab Data Labs: Lab Results 11/20/22 11/20/22 11/20/22 Range/Units 12:28 12:28 12:28 WBC 7.1 (4.5-11.0) X10^3/uL RBC 3.86 L (4.0-5.2) X10^6/uL Hgb 11.8 L (12.0-16.0) g/dL Hct 35.1 L (36-46) % MCV 91.0 (80-100) fL MCH 30.7 (26-34) PG MCHC 33.8 (30-36) % RDW 14.1 (11.6-14.8) % Plt Count 200 (150-400) X10^3/uL Neut % (Auto) 66.9 (50-75) % Lymph % (Auto) 21.7 L (25-40) % [place] % (Auto) 8.8 (3-14) % Eos % (Auto) 2.0 (2-4) % Baso % (Auto) 0.6 (0-2) % Neut # (Auto) 4700 (3661-9842) /uL Lymph # (Auto) 1500 (3178-5422) /uL [place] # (Auto) 600 (0-900) /uL Eos # (Auto) 100 (0-450) /uL Baso # (Auto) 0 (0-100) /uL Sodium 139 (137-145) mmol/L Potassium 4.3 (3.4-5.1) mmol/L Chloride 107 (98-107) mmol/L Carbon Dioxide 27 (22-32) mmol/L BUN 32 H (7-17) mg/dL Creatinine 0.91 (0.52-1.04) mg/dL Estimated GFR > 60 (>60) mL/min BUN/Creatinine Ratio 35.2 H (6-22) Glucose 105 (80-110) mg/dL Calcium 9.2 (8.4-10.2) mg/dL Total Bilirubin 0.6 (0.2-1.3) mg/dL AST 29 (14-36) IU/L ALT 27 (<35) IU/L Alkaline Phosphatase 99 (38-126) U/L Total Creatine Kinase 88 (30-135) U/L Troponin I < 0.012 (0.01-0.034) ng/mL NT-Pro-B Natriuret Pep 502 H (<450) pg/mL Total Protein 7.1 (6.3-8.2) g/dL Albumin 4.2 (3.5-5.0) g/dL Globulin 2.9 (1.7-4.1) g/dL Albumin/Globulin Ratio 1.4 (1.0-2.8) Discharge Plan Departure Patient Disposition: Home Clinical Impression: Cellulitis, Swelling of right lower extremity Activity Restrictions/Additional Instructions: *You have been diagnosed with [cellulitis/lower extremity edema] *What to do: *Please continue to take your regular medications as directed. [1 ] New medication prescriptions sent to your pharmacy: [Cephalexin] [ ] New medication written as a paper prescription [ ] No new medications given *Please follow up with your primary care provider in 2-3 days, call for an appointment. Let them know you were seen in the Emergency Department and that we ask that you be seen in follow up. We will electronically transmit a record of today's note if your PCP is in our system. We did do an ultrasound today bilaterally to evaluate for DVT this thankfully did not show any evidence of DVT (deep vein thrombosis); but you do have swelling in the right right lower leg with exam findings concerning for infectious process, cellulitis. I am placing you on antibiotics today for this, I would encourage you to stay active but with the swelling going on in your leg and discomfort I do encourage you to also elevate your leg when you are at rest or sitting you may want to consider compression stockings although I suspect that the swelling has been dealing with is related to an infectious/inflammatory process. Certainly if it worsens de spite the antibiotics or is not improving please make sure you get re-evaluated. In addition to doing an ultrasound today we also checked some basic labs and some cardiac labs, these were all looking okay there is no suggestion that you have a severe generalized infection related to your cellulitis and your cardiac labs looked okay today to, except that 1 lab called the BNP was just slightly elevated above normal, this can sometimes be elevated if the heart is not pumping as efficiently as it should. We did a chest x-ray as well to further evaluate and there is possibly a very small trace pleural effusion this is not something that needs any treatment currently and it could be related to the slightly elevated lab we saw (BNP) I recommend following up with your primary care provider and again getting into see cardiology as planned, your primary care provider may want to consider rechecking your BNP lab within a few weeks' time certainly if you are feeling increasingly short of breath or if you develop chest pain or any other new or concerning symptoms do not hesitate to be re-evaluated. I am glad you will be getting in to see cardiology soon. *Return to Emergency Department if you should have any new, worsening or concerning symptoms, such as [fever greater than 101 F, shaking chills, worsening pain, persistent vomiting or other bothersome symptoms] Prescriptions: New cephalexin 500 mg capsule 500 mg PO BID 10 Days Qty: 20 0RF No Action prednisone 20 MG tablet 20 mg PO QDAY Qty: 5 0RF doxycycline monohydrate [Monodox] 100 MG capsule 100 mg PO BID Qty: 20 0RF codeine-guaifenesin 100 MG/10 MG liquid 5 ml PO Q4HP PRNQty: 100 0RF losartan 50 mg Tablet 25 mg PO DAILY atorvastatin [Lipitor] 10 mg Tablet 10 mg PO DAILY aspirin 81 mg Tablet,Delayed Release (Dr/Ec) 81 mg PO DAILY cholecalciferol (vitamin D3) 50,000 unit Tablet 50,000 unit PO DAILY Plavix Referrals: Rachel Wilhelm MD [Primary Care Provider] - Stand Alone Forms: Patient Portal/API <Wes Cagle DO - Last Filed: 11/20/22 19:01> Cosign ED Attending Saige Attestation: I was immediately available in the department for consultation. Documentation has been reviewed. I agree with assessment and plan.
[2022-11-20 12:41] LABS: Add Manual Diff / Slide Review NO; Basophils Absolute Auto 0 /uL (0-100); Basophils Percent Auto 0.6 % (0-2); Eosinophils Absolute Auto 100 /uL (0-450); Hematocrit 35.1 % (36-46); Hemoglobin 11.8 g/dL (12.0-16.0); Lymphocytes Absolute Auto 1500 /uL (1100-4500); Lymphocytes Percent Auto 21.7 % (25-40); Mean Corpuscular HGB Conc 33.8 % (30-36); Mean Corpuscular Hemoglobin 30.7 PG (26-34); Monocytes Absolute Auto 600 /uL (0-900); Monocytes Percent Auto 8.8 % (3-14); Neutrophils Absolute Auto 4700 /uL (1500-7000); Neutrophils Percent Auto 66.9 % (50-75); Platelet Count 200 X10^3/uL (150-400); Red Blood Cell Count 3.86 X10^6/uL (4.0-5.2); Red Cell Distribution Width 14.1 % (11.6-14.8); White Blood Cell Count 7.1 X10^3/uL (4.5-11.0)
[2022-11-20 12:58] LABS: Alanine Aminotransferase 27 IU/L (<35); Albumin 4.2 g/dL (3.5-5.0); Albumin Globulin Ratio 1.4 (1.0-2.8); Alkaline Phosphatase 99 U/L (38-126); Aspartate Aminotransferase 29 IU/L (14-36); BUN Creatinine Ratio 35.2 (6-22); Bilirubin Total 0.6 mg/dL (0.2-1.3); Blood Urea Nitrogen 32 mg/dL (7-17); Calcium 9.2 mg/dL (8.4-10.2); Carbon Dioxide 27 mmol/L (22-32); Chloride 107 mmol/L (98-107); Creatine Kinase 88 U/L (30-135); Estimated Glomerular Filt Rate > 60 mL/min (>60); Globulin 2.9 g/dL (1.7-4.1); Glucose 105 mg/dL (80-110); HEMOLYSIS < 15 (0-50); Potassium 4.3 mmol/L (3.4-5.1); Sodium 139 mmol/L (137-145); Total Protein 7.1 g/dL (6.3-8.2)
[2022-11-20 13:06] LABS: NT-proBNP (BNP-Adult 18+) 502 pg/mL (<450)
[2022-11-20 13:09] LABS: Troponin I < 0.012 ng/mL (0.01-0.034)
--- NOTE | 2022-11-20 13:13 | DI.RAD.S_ITS ---
PROCEDURE: XR CHEST 2V INDICATIONS: SHOB w/ exertion, leg swelling TECHNIQUE: 2 views of the chest were acquired. COMPARISON: [facility], , CHEST 2 VIEW, 01/30/2017, 15:13. FINDINGS: Surgical changes and devices: None. Lungs and pleura: Prominence of the pulmonary vasculature. No focal pulmonary consolidations. The left costophrenic angle is mildly blunted. Mediastinum: Mediastinal contours are normal. Heart size is normal. Bones and chest wall: No suspicious bony abnormalities. Degenerative changes of the spine. Soft tissues appear unremarkable. IMPRESSION: Pulmonary vascular congestion. Blunting left costophrenic angle may represent trace effusion. No focal pulmonary consolidations. Dictated by: Liam De La Garza M.D. on 11/20/2022 at 13:49 Approved by: Liam De La Garza M.D. on 11/20/2022 at 13:50
[2022-11-20 13:20] VITALS: BP 179/87; PULSE 72; RESP 16; O2SAT 98
== END 2022-11-20 14:12 | disposition home or self-care (01) ==
PROVIDERS: Emergency Provider Student in an Organized Health Care Education/Training Program; PCP Family Medicine
DX: L03.115 Cellulitis of right lower limb (principal); R60.0 Localized edema
CPT/HCPCS: 36415; 71046; 80053; 82550; 83880; 84484; 85025; 93970; 99284

== ENCOUNTER → 2023-01-24 09:40 | Outpatient (CLI) | payer MEDICARE, OTHER, SELFPAY ==
--- NOTE | 2023-01-24 09:42 | DI.NM.S_ITS ---
PROCEDURE: NM DUNIA PERF SPECT R&S PHARM Rest and pharmacological stress myocardial perfusion SPECT with gated imaging and ejection fraction RADIOPHARMACEUTICAL: 11.7 mCi Tc-99m tetrafosmin IV at rest and 26.4 mCi Tc-99m tetrafosmin IV at peak effect of pharmacological stress. A 6-aoh-ypcfuwhy was performed. INDICATIONS: Shortness of breath TECHNIQUE: Radiopharmaceutical was injected at peak stress test, and also at rest. SPECT images were obtained. SPECT myocardial perfusion images were displayed in short axis, horizontal long axis, and vertical long axis views. Gated images were reviewed using [employer] software. COMPARISON: None. CARDIAC STRESS: A pharmacologic stress test was performed under the supervision of an attending staff, using an infusion of regadenoson 0.4 mg IV. Hemodynamic data: There is normal blood pressure and heart rate response to pharmacologic stress. Symptoms: The patient denied anginal chest pain. EKG: No diagnostic changes of ischemia; no ectopy. FINDINGS: Raw data: There is good myocardial uptake of radiotracer. No significant motion artifacts. Ctct-pq-vcgni ratio is 0.34 (normal is less than 0.38 for tetrafosmin tracer). Left ventricle function: Gated images demonstrate normal left ventricular wall thickening. No segmental wall motion abnormalities. No transient ischemic dilation; TID is 0.92 (normal less than 1.3). Left ventricle resting end diastolic volume is 108 mL. Left ventricle stress ejection fraction is unable to be calculated due to problems with gated imaging however the rest gated imaging shows normal wall motion with a calculated EF of 68%. Myocardial perfusion: There is a small size, medium intensity fixed apical and apical septal wall defect. No reversible perfusion defects. IMPRESSION: Likely low risk study. The small size, medium intensity fixed apical and apical septal wall defect occurs in the setting of normal wall motion however gated images are obtained only in the resting state. No reversible perfusion defects. Dictated by: Suly Carbajal D.O. on 01/24/2023 at 17:08 Approved by: Suly Carbajal D.O. on 01/24/2023 at 17:12
== END ==
PROVIDERS: PCP Family Medicine; Referring Provider Internal Medicine Cardiovascular Disease; Visit Provider Internal Medicine Cardiovascular Disease
DX: R06.02 Shortness of breath (principal); Q21.8 Other congenital malformations of cardiac septa
CPT/HCPCS: 78452; 93017; A9502; J2785

== ENCOUNTER 2025-02-09 15:50 | Emergency (ER) | payer MEDICARE, OTHER, SELFPAY ==
[2025-02-09 15:58] VITALS: BP 185/110; PULSE 98; RESP 18; TEMP 36.4; O2SAT 97; BMI 35.9
--- NOTE | 2025-02-09 16:22 | DI.CT.S_ITS ---
PROCEDURE: CT HEAD/BRAIN WO CON INDICATIONS: fall TECHNIQUE: Noncontrast 4.5 mm thick angled axial sections acquired from the foramen magnum to the vertex, with coronal and sagittal reformats. For radiation dose reduction, the following was used: automated exposure control, adjustment of mA and/or kV according to patient size. COMPARISON: [facility], CT, CT HEAD/BRAIN WO CON, 02/03/2018, 12:34. FINDINGS: Image quality: Diagnostic. CSF spaces: Basal cisterns are patent. No extra-axial fluid collections. The ventricles are symmetric in size and shape. Brain: Left frontal lobe encephalomalacia. No intracranial bleeds or mass effect. There is cerebral volume loss, with resultant ventricular and sulcal prominence. There are periventricular and deep white matter chronic small vessel ischemic changes. There is intracranial internal carotid artery atherosclerosis. Skull and face: Calvarium and visualized facial bones appear intact, without suspicious lesions. Sinuses: Visualized sinuses and mastoids are clear. IMPRESSION: No acute intracranial pathology. Left frontal lobe encephalomalacia, correlate with prior infarct or hemorrhage. Dictated by: Liam De La Garza M.D. on 02/09/2025 at 16:46 Approved by: Liam De La Garza M.D. on 02/09/2025 at 16:47
--- NOTE | 2025-02-09 16:22 | DI.CT.S_ITS ---
PROCEDURE: CT FACIAL BONES WO CON INDICATIONS: fall TECHNIQUE: Noncontrast 2.5 mm thick axial images acquired from the mandible through the frontal sinuses, with coronal and sagittal reformatting. For radiation dose reduction, the following was used: automated exposure control, adjustment of mA and/or kV according to patient size. COMPARISON: None. FINDINGS: Image quality: Excellent. Bones and teeth: Orbital major are intact. Sinus major show no fracture or deformity. Nasal bones and septum are intact. Visualized portions of the mandible demonstrate no fractures or subluxation. Zygomatic arches are intact. Pterygoid plates are intact. Visualized portions of the skull base and auditory canals are intact. Sinuses: Paranasal sinuses are aerated, without fluid levels, mucosal thickening, or mucoceles. Mastoid air cells are aerated. Soft tissues: Superficial right frontal soft tissue contusion. No radiopaque retained foreign body.. No enlarged lymph nodes. No soft tissue lacerations or debris. Vascular: Visualized vascular structures appear normal in the absence of contrast. Change of left internal carotid stenting. Bony vascular foramina and canals are intact. IMPRESSION: 1. No fracture or acute osseous abnormality. 2. Right frontal scalp superficial contusion. Dictated by: Pietro Heck M.D. on 02/09/2025 at 16:54 Approved by: Pietro Heck M.D. on 02/09/2025 at 16:58
--- NOTE | 2025-02-09 16:22 | DI.CT.S_ITS ---
PROCEDURE: CT CERVICAL SPINE WO CON INDICATIONS: fall TECHNIQUE: Noncontrast 3 mm thick sections acquired from the skull base to the T4 level. Sagittal and coronal reformats were then constructed. For radiation dose reduction, the following was used: automated exposure control, adjustment of mA and/or kV according to patient size. COMPARISON: None. FINDINGS: Image quality: Excellent. Bones: No fractures or dislocations. Visualized superior ribs are intact. Mild degenerative anterolisthesis of C3 on C4. Moderate disc space narrowing with degenerate disc osteophyte complexes at C4-5 and C5-6. Soft tissues: Prevertebral soft tissues are normal in thickness. No paravertebral hematomas. No apical pneumothoraces. IMPRESSION: No displaced fracture or traumatic subluxation. Multilevel degenerative disc disease from C4-5 through C6-7 which results in mild spinal canal stenosis at these levels. Dictated by: Pietro Heck M.D. on 02/09/2025 at 16:59 Approved by: Pietro Heck M.D. on 02/09/2025 at 17:00
[2025-02-09] MEDS: ACETAMINOPHEN 325 MG TABLET 975 MG PO (16:53)
--- NOTE | 2025-02-09 17:01 | ED.WOUNDLAC ---
HPI - Wound/Laceration <Tanner Murrell PA-C - Last Filed: 02/10/25 11:45> General Chief Complaint: Wound/Laceration Stated Complaint: fell, head laceration Time Seen by Provider: 02/09/25 16:21 Source: patient Mode of arrival: Ambulatory History of Present Illness HPI narrative: 79-year-old female with past medical history CVA, reactive airway disease, bronchitis presents to the ED status post a ground level fall sustained earlier today. Patient states that she tripped and fell face forward over a rolled up rug in her house, had her phone in her hand, her right brow struck her phone, resulting in a laceration. Patient is complaining of pain around the right eye and brow. 8/10 pain. No loss of consciousness. Patient is not on blood thinners. Patient denies chest pain, shortness of breath prior to the fall. Patient describes the fall as purely mechanical. Patient drove herself to the emergency department. Related Data Home Medications ?Medication ?Instructions ?Recorded ?Confirmed Plavix 09/03/18 aspirin 81 mg tablet,delayed 81 mg PO DAILY 09/03/18 09/03/18 release atorvastatin 10 mg tablet (Lipitor) 10 mg PO DAILY 09/03/18 09/03/18 cholecalciferol (vitamin D3) 1,250 50,000 unit PO DAILY 09/03/18 09/03/18 mcg (50,000 unit) tablet losartan 50 mg tablet 25 mg PO DAILY 09/03/18 09/03/18 Previous Rx's ?Medication ?Instructions ?Recorded codeine 10 mg-guaifenesin 100 mg/5 5 ml PO Q4HP PRN #100 mL 01/30/17 mL oral liquid doxycycline monohydrate 100 mg 100 mg PO BID #20 caps 01/30/17 capsule (Monodox) prednisone 20 mg tablet 20 mg PO QDAY #5 tabs 01/30/17 Allergies Allergy/AdvReac Type Severity Reaction Status Date / Time acetaminophen Allergy Severe Unlisted Verified 11/20/22 11:46 amoxicillin (From AUGMENTIN) Allergy Severe HEART Unverified 11/20/22 11:46 PALPATIONS clavulanic acid (From Allergy Severe HEART Unverified 11/20/22 11:46 AUGMENTIN) PALPATIONS erythromycin base Allergy Severe Unlisted Verified 11/20/22 11:46 moxifloxacin Allergy Severe Unlisted Verified 11/20/22 11:46 Latex, Natural Rubber Allergy Mild Rash Verified 11/20/22 11:46 lisinopril (LISINOPRIL) AdvReac Severe COUGH Unverified 11/20/22 11:46 Review of Systems <Tanner Murrell PA-C - Last Filed: 02/10/25 11:45> Constitutional Constitutional: Denies chills, Denies fatigue, Denies fever(s), Denies frequent falls, Denies lethargy and Denies weakness Eyes Eyes: Denies change in vision, Denies eye discharge, Denies irritation and Denies loss of vision ENT Ears, Nose, Mouth, and Throat: Denies change in voice, Denies dizziness, Denies neck pain, Denies sore throat and Denies throat swelling Cardiovascular Cardiovascular: Denies chest pain, Denies irregular heart rhythm, Denies lightheadedness, Denies palpitations, Denies dyspnea, Denies dyspnea on exertion and Denies orthopnea Respiratory Respiratory: Denies cough, Denies dyspnea, Denies dyspnea on exertion and Denies wheezing Gastrointestinal Gastrointestinal: Denies abdominal pain, Denies change in bowel habits, Denies diarrhea, Denies nausea and Denies vomiting Musculoskeletal Musculoskeletal: Denies neck pain and Denies numbness Integumentary/Breasts Skin/Breast: Denies pruritus, Denies erythema, Denies rash and Reports wounds Comments: Laceration above right brow Neurologic Neurologic: Denies behavioral changes, Denies confusion, Denies dizziness, Denies frequent falls, Denies loss of vision, Denies numbness and Denies weakness Psychiatric Psychiatric: Denies anxiety, Denies behavioral changes, Denies confusion, Denies depression, Denies homicidal ideation and Denies suicidal ideation Endocrine Endocrine: Denies fatigue, Denies flushing and Denies palpitations Hematologic/Lymphatic Hematologic/Lymphatic: Denies easy bruising Allergic/Immunologic Allergic/Immunologic: Denies urticaria, Denies throat swelling and Denies wheezing Patient History <Tanner Murrell PA-C - Last Filed: 02/10/25 11:45> Medical History Dysphagia as late effect of cerebrovascular disease Dysphagia Bruises easily Difficulty walking Joint pain Blurred vision Skin mole Memory disturbance Fatigue Social History household members: friend(s) alcohol intake frequency: 0-2 drinks per day Exam <Tanner Murrell PA-C - Last Filed: 02/10/25 11:45> Narrative Exam Narrative: Const General:?cooperative, healthy appearing and comfortable [facility] Head:?normal to inspection Ears:?hearing grossly normal bilaterally Nose:?external nose normal Face and sinus:?normal facial exam and sinuses nontender Mouth:?oral mucosae normal Throat:?posterior oropharynx normal Eyes General:?appearance normal, both eyes and all related structures Neck Neck:?normal visual inspection and no lymphadenopathy noted Resp Effort & Inspection:?normal respiratory effort Auscultation:?clear to auscultation bilaterally Cardio Rate:?regular rate Rhythm:?regular rhythm Integumentary There is a 4 cm linear laceration above the right brow. Bleeding controlled with pressure. No deeper structures visualized on exam. There is bruising along the right, upper eyelid. Brow feather boner to palpation. Neuro General:?patient alert, patient awake and patient oriented x3 Initial Vital Signs Initial Vital Signs: Vital Signs Temperature 97.5 F L 02/09/25 15:58 Pulse Rate 98 H 02/09/25 15:58 Respiratory Rate 18 02/09/25 15:58 Blood Pressure 185/110 H 02/09/25 15:58 Pulse Oximetry 97 02/09/25 15:58 Oxygen Delivery Method Room Air 02/09/25 15:58 <Daria David MD - Last Filed: 02/13/25 16:50> Initial Vital Signs Initial Vital Signs: Vital Signs Temperature 97.5 F L 02/09/25 15:58 Pulse Rate 98 H 02/09/25 15:58 Respiratory Rate 18 02/09/25 15:58 Blood Pressure 185/110 H 02/09/25 15:58 Pulse Oximetry 97 02/09/25 15:58 Oxygen Delivery Method Room Air 02/09/25 15:58 Procedures <Tanner Murrell PA-C - Last Filed: 02/10/25 11:45> Laceration Repair Laceration 1: Site: face Side (If applicable): right Size (cm): 4 Description: linear Depth: simple, single layer Local Anesthetic: lidocaine 2% Amount of anesthesia used (mL): 3 Pre-repair: wound explored, irrigated extensively and deep structures intact Skin layer closed with: nylon Skin layer suture size: 5-0 Number of sutures: 5 Technique: simple, interrupted Course <Tanner Murrell PA-C - Last Filed: 02/10/25 11:45> Orders Ordered: Discontinued Medications Acetaminophen (Acetaminophen 325 Mg Tablet) 975 mg PO NOW ONE Stop: 02/09/25 16:42 Last Admin: 02/09/25 16:53 Dose: 975 mg Documented By: MISSY Bacitracin (Bacitracin Oint 0.9 Gm Pckt) 1 applic TOP NOW ONE Stop: 02/09/25 18:42 Last Admin: 02/09/25 18:44 Dose: 1 applic Documented By: MISSY Ketorolac Tromethamine (Ketorolac 30 Mg/Ml Vial) 30 mg IM NOW ONE Stop: 02/09/25 16:29 Last Admin: 02/09/25 16:54 Dose: Not Given Documented By: MISSY Lidocaine HCl (Lidocaine 2% Inj Sdv 5ml) 2 ml INJ NOW ONE Stop: 02/09/25 17:14 Last Admin: 02/09/25 17:22 Dose: 2 ml Documented By: MISSY Vital Signs Vital signs: Vital Signs - 8 hr 02/09/25 15:58 Temperature 97.5 F L Pulse Rate 98 H Respiratory Rate 18 Blood Pressure 185/110 H Pulse Oximetry 97 Oxygen Delivery Method Room Air <Daria David MD - Last Filed: 02/13/25 16:50> Orders Ordered: Discontinued Medications Acetaminophen (Acetaminophen 325 Mg Tablet) 975 mg PO NOW ONE Stop: 02/09/25 16:42 Last Admin: 02/09/25 16:53 Dose: 975 mg Documented By: MISSY Bacitracin (Bacitracin Oint 0.9 Gm Pckt) 1 applic TOP NOW ONE Stop: 02/09/25 18:42 Last Admin: 02/09/25 18:44 Dose: 1 applic Documented By: MISSY Ketorolac Tromethamine (Ketorolac 30 Mg/Ml Vial) 30 mg IM NOW ONE Stop: 02/09/25 16:29 Last Admin: 02/09/25 16:54 Dose: Not Given Documented By: MISSY Lidocaine HCl (Lidocaine 2% Inj Sdv 5ml) 2 ml INJ NOW ONE Stop: 02/09/25 17:14 Last Admin: 02/09/25 17:22 Dose: 2 ml Documented By: MISSY Vital Signs Vital signs: Vital Signs - 8 hr 02/09/25 15:58 Temperature 97.5 F L Pulse Rate 98 H Respiratory Rate 18 Blood Pressure 185/110 H Pulse Oximetry 97 Oxygen Delivery Method Room Air MDM - Wound/Laceration <Tanner Murrell PA-C - Last Filed: 02/10/25 11:45> [facility] Narrative Medical decision making narrative: 79-year-old female with past medical history CVA, reactive airway disease, bronchitis presents to the ED status post a ground level fall sustained earlier today. Concern for intracranial hemorrhage versus fracture/dislocation versus laceration versus other. Obtained CT head, CT C-spine, CT facial bones. CT scan shows left frontal lobe encephalomalacia, likely correlating to the prior CVA. No other acute findings on CT head. Facial CT shows no fracture or acute osseous abnormality. There is a right frontal scalp superficial contusion. Cervical spine CT with no displaced fracture or traumatic subluxation. Multilevel degenerative disc disease from C4-5 through C6-7 which results in mild spinal canal stenosis at these levels. Patient given Tylenol for pain control. Laceration repaired with 5 sutures. Wound care, suture removal instructions discussed with patient. ED return precautions discussed with patient. Patient verbalized understanding. Medical records reviewed: Yes Discharge Plan Departure Patient Disposition: Home Clinical Impression: Laceration Instructions: DI for Laceration Repair Activity Restrictions/Additional Instructions: You were evaluated in the emergency department today for a brow injury from a fall. Your CT scans of the head, neck and face were normal. The last above your brow was repaired with 5 sutures. The sutures will need to be removed in 5-7 days. You may return to the ED, go to your PCP's office or a walk-in clinic for suture removal. Please keep the wound clean and dry for the 1st 24 hours, following which you may wash gently with soap and water. Please ensure that the wound is completely dry prior to placing a new dressing over it. Please watch for signs of infection including worsening redness, swelling, warmth, discharge, pain. In written the ED note any signs of infection. Prescriptions: No Action prednisone 20 MG tablet 20 mg PO QDAY Qty: 5 0RF doxycycline monohydrate [Monodox] 100 MG capsule 100 mg PO BID Qty: 20 0RF codeine-guaifenesin 100 MG/10 MG liquid 5 ml PO Q4HP PRNQty: 100 0RF losartan 50 mg Tablet 25 mg PO DAILY atorvastatin [Lipitor] 10 mg Tablet 10 mg PO DAILY aspirin 81 mg Tablet,Delayed Release (Dr/Ec) 81 mg PO DAILY cholecalciferol (vitamin D3) 50,000 unit Tablet 50,000 unit PO DAILY Plavix Referrals: Rachel Wilhelm MD [Primary Care Provider, Medical] Stand Alone Forms: Patient Portal/API ED Sign-out <Daria David MD - Last Filed: 02/13/25 16:50> Cosign ED Attending Coszaidaature Attestation: I was immediately available in the department for consultation throughout this patient's visit. Daria David MD
[2025-02-09] MEDS: LIDOCAINE 2% INJ SDV 5ML 2 ML INJ (17:22)
[2025-02-09] MEDS: BACITRACIN OINT 0.9 GM PCKT 1 APPLIC TOP (18:44)
[2025-02-09 19:14] VITALS: BP 192/92; PULSE 80; RESP 16; O2SAT 98
== END 2025-02-09 19:00 | disposition home or self-care (01) ==
PROVIDERS: Emergency Provider Student in an Organized Health Care Education/Training Program; PCP Family Medicine
DX: S01.111A Laceration without foreign body of right eyelid and periocular area, initial encounter (principal); W18.30XA Fall on same level, unspecified, initial encounter; Z86.73 Personal history of transient ischemic attack (TIA), and cerebral infarction without residual deficits
CPT/HCPCS: 70450; 70486; 72125; 99284

== ENCOUNTER 2025-02-16 15:30 | Emergency (ER) | payer MEDICARE, OTHER, SELFPAY ==
[2025-02-16 15:36] VITALS: BP 159/70; PULSE 83; RESP 14; TEMP 36.5; O2SAT 98; BMI 36.1
--- NOTE | 2025-02-16 15:40 | ED.RECABL ---
HPI - Recheck/Abnormal Lab/Rx <Edel Donahue PA-C - Last Filed: 02/16/25 16:00> General Chief Complaint: Recheck/Abnormal Lab/Rx Stated Complaint: wants stitches taken out Time Seen by Provider: 02/16/25 15:38 Source: patient Mode of arrival: Ambulatory History of Present Illness HPI narrative: Ms. Walker is a pleasant 79-year-old female with a past medical history of CVA, reactive airway disease who presents to the emergency department for right eyebrow laceration suture removal. On 02/09/2025 patient was seen in this emergency department after having a ground level fall. She had imaging of her head neck and face at that time and had a right upper eyebrow laceration repaired using 5 simple interrupted sutures. She has been applying ointment and dressings daily. Her wound is healing well. Bruising on her eyes healing well. She has no other concerns or complaints. No fevers redness or purulent drainage from the wound. Related Data Home Medications ?Medication ?Instructions ?Recorded ?Confirmed Plavix 09/03/18 aspirin 81 mg tablet,delayed 81 mg PO DAILY 09/03/18 09/03/18 release atorvastatin 10 mg tablet (Lipitor) 10 mg PO DAILY 09/03/18 09/03/18 cholecalciferol (vitamin D3) 1,250 50,000 unit PO DAILY 09/03/18 09/03/18 mcg (50,000 unit) tablet losartan 50 mg tablet 25 mg PO DAILY 09/03/18 09/03/18 Previous Rx's ?Medication ?Instructions ?Recorded codeine 10 mg-guaifenesin 100 mg/5 5 ml PO Q4HP PRN #100 mL 01/30/17 mL oral liquid doxycycline monohydrate 100 mg 100 mg PO BID #20 caps 01/30/17 capsule (Monodox) prednisone 20 mg tablet 20 mg PO QDAY #5 tabs 01/30/17 Allergies Allergy/AdvReac Type Severity Reaction Status Date / Time acetaminophen Allergy Severe Unlisted Verified 02/16/25 16:00 amoxicillin (From AUGMENTIN) Allergy Severe HEART Verified 02/16/25 16:00 PALPATIONS clavulanic acid (From Allergy Severe HEART Verified 02/16/25 16:00 AUGMENTIN) PALPATIONS erythromycin base Allergy Severe Unlisted Verified 02/16/25 16:00 moxifloxacin Allergy Severe Unlisted Verified 02/16/25 16:00 Latex, Natural Rubber Allergy Mild Rash Verified 02/16/25 16:00 lisinopril (LISINOPRIL) AdvReac Severe COUGH Verified 02/16/25 16:00 Review of Systems <Edel Donahue PA-C - Last Filed: 02/16/25 16:00> Review of Systems ROS Unobtainable: All systems reviewed & are unremarkable except as noted in HPI and below Patient History <Edel Donahue PA-C - Last Filed: 02/16/25 16:00> Medical History Dysphagia as late effect of cerebrovascular disease Dysphagia Bruises easily Difficulty walking Joint pain Blurred vision Skin mole Memory disturbance Fatigue Social History household members: friend(s) alcohol intake frequency: 0-2 drinks per day Exam <Edel Donahue PA-C - Last Filed: 02/16/25 16:00> Narrative Exam Narrative: GENERAL: 79 year old patient appears stated age. Well-developed patient, in no acute distress. HEAD: Atraumatic. Normocephalic. EYES: Above the right eyebrow there is a 4 cm linear laceration with 5 nylon sutures in placed and scabbing around each suture. After removal of sutures and scabs, there is a well healed linear scar. Fading ecchymoses in the right periocular region. PERRL. Extraocular motions intact. No scleral icterus. No injection or drainage. NECK: Trachea midline. Cervical ROM intact. CARDIOVASCULAR: Regular rate RESPIRATORY: ?Nonlabored respirations. ?Speaking in clear, full sentences. ? NEURO: AOx3. ?Clear speech. ?Moves all 4 extremities appropriately. Ambulates independently with slow gait. SKIN: Right upper eyebrow healed laceration described above. Initial Vital Signs Initial Vital Signs: Vital Signs Temperature 97.7 F 02/16/25 15:36 Pulse Rate 83 02/16/25 15:36 Respiratory Rate 14 02/16/25 15:36 Blood Pressure 159/70 H 02/16/25 15:36 Pulse Oximetry 98 02/16/25 15:36 Oxygen Delivery Method Room Air 02/16/25 15:36 <Daria David MD - Last Filed: 02/16/25 23:51> Initial Vital Signs Initial Vital Signs: Vital Signs Temperature 97.7 F 02/16/25 15:36 Pulse Rate 83 02/16/25 15:36 Respiratory Rate 14 02/16/25 15:36 Blood Pressure 159/70 H 02/16/25 15:36 Pulse Oximetry 98 02/16/25 15:36 Oxygen Delivery Method Room Air 02/16/25 15:36 Course <Edel Donahue PA-C - Last Filed: 02/16/25 16:00> Orders Ordered: Discontinued Medications Bacitracin (Bacitracin Oint 0.9 Gm Pckt) 1 applic TOP NOW ONE Stop: 02/16/25 15:49 Last Admin: 02/16/25 16:05 Dose: 1 applic Documented By: CHUCHO Vital Signs Vital signs: Vital Signs - 8 hr 02/16/25 16:06 Temperature 98.5 F Pulse Rate 68 Respiratory Rate 18 Blood Pressure 138/76 Pulse Oximetry 96 Oxygen Delivery Method Room Air <Daria David MD - Last Filed: 02/16/25 23:51> Orders Ordered: Discontinued Medications Bacitracin (Bacitracin Oint 0.9 Gm Pckt) 1 applic TOP NOW ONE Stop: 02/16/25 15:49 Last Admin: 02/16/25 16:05 Dose: 1 applic Documented By: CHUCHO Vital Signs Vital signs: Vital Signs - 8 hr 02/16/25 16:06 Temperature 98.5 F Pulse Rate 68 Respiratory Rate 18 Blood Pressure 138/76 Pulse Oximetry 96 Oxygen Delivery Method Room Air MDM - Recheck/Abnormal Lab/Rx <Edel Donahue PA-C - Last Filed: 02/16/25 16:00> Medical Records Attestation: I reviewed the patient's medical records. Medical records narrative: ED visit on 02/09/2025 for trip and fall causing right upper eyebrow laceration, 5 simple interrupted sutures were placed. [facility] Narrative Medical decision making narrative: 79-year-old female with a past medical history of CVA, reactive airway disease who presents to the emergency department for right eyebrow laceration suture removal. On 02/09/2025 patient was seen in this emergency department after having a ground level fall. Differential diagnosis includes but is not limited to laceration, healing laceration, wound infection, suture removal, etc. On exam patient is in no acute distress, nontoxic appearing, vital signs within normal limits. She has fading bruising around the right eye and a linear laceration above the right eyebrow with 5 simple interrupted sutures in placed, there is scabbing around the sutures. Reviewed the ED visit from 02/09/2025. Overall patient is doing well, she has been taking good care for wound. The 5 sutures were removed easily, scabbing was gently removed with wet saline, bacitracin and a nonadherent bandage was applied to the wound. Discussed proper wound care and further management of the scar. Discussed PCP follow up and ER return precautions. Patient verbalized understanding of all information agreeable with the plan, she is ambulatory and stable for discharge home. Discharge Plan Departure Patient Disposition: Home Clinical Impression: Encounter for removal of sutures Instructions: DI for Suture Removal Activity Restrictions/Additional Instructions: Dear Alonso Aaron, Thank you for coming to the emergency department. Today 5 stitches were removed from your right eyebrow laceration. This laceration is healing well. Please continue applying ointment and a bandage to your wound daily until it as a scar. Once it is a scar, use sunscreen to help reduce the appearance of the scar, you can also use silicone gel scar sheets on the scar at night to help with appearance. Please rest, hydrate, follow up with the primary care doctor, return to the ER if you develop any new symptoms or concerns. Please follow up with your primary care doctor within the next 2-3 days for ER follow-up. (If you do not have a PCP you can call [phone]. ?to schedule an appointment with an [facility] Primary Care Provider) IF YOU DEVELOP ANY NEW OR WORSENING SYMPTOMS, RETURN TO THE ER! Please read the attached instructions, they highlight more specific treatments and interventions for you at home. Thank you for letting me participate in your care, Edel Donahue PA-C Prescriptions: No Action prednisone 20 MG tablet 20 mg PO QDAY Qty: 5 0RF doxycycline monohydrate [Monodox] 100 MG capsule 100 mg PO BID Qty: 20 0RF codeine-guaifenesin 100 MG/10 MG liquid 5 ml PO Q4HP PRNQty: 100 0RF losartan 50 mg Tablet 25 mg PO DAILY atorvastatin [Lipitor] 10 mg Tablet 10 mg PO DAILY aspirin 81 mg Tablet,Delayed Release (Dr/Ec) 81 mg PO DAILY cholecalciferol (vitamin D3) 50,000 unit Tablet 50,000 unit PO DAILY Plavix Referrals: Rachel Wilhelm MD [Primary Care Provider, Medical] Stand Alone Forms: Patient Portal/API ED Sign-out <Daria David MD - Last Filed: 02/16/25 23:51> Cosign ED Attending Cosignature Attestation: I was immediately available in the department for consultation throughout this patient's visit. Daria David MD
[2025-02-16] MEDS: BACITRACIN OINT 0.9 GM PCKT 1 APPLIC TOP (16:05)
[2025-02-16 16:06] VITALS: BP 138/76; PULSE 68; RESP 18; TEMP 36.9; O2SAT 96
== END 2025-02-16 16:05 | disposition home or self-care (01) ==
PROVIDERS: Emergency Provider Physician Assistant; PCP Family Medicine
DX: Z48.1 Encounter for planned postprocedural wound closure (principal)
CPT/HCPCS: 99282